=== PATIENT | male | born 1930 | race Hispanic/Latino ===

== ENCOUNTER 2018-11-11 14:14 | Inpatient (IN) | payer MEDICARE ==
[2018-11-11 14:33] VITALS: O2SAT 96
--- NOTE | 2018-11-11 14:36 | ED PDOC ---
Psych Transfer Clearance - Clearance Statement Clearance Statement: Reviewed vital signs, lab results and transfer papers. Patient clinically stable for psychiatric admission.
[2018-11-11] MEDS ORDERED: Magnesium Hydroxide Susp 30 ml UD PO PRN (15:21)
[2018-11-11] MEDS ORDERED: Alum-Mag Hydrox-Simethicone Susp (30 mL) PO PRN (15:21)
--- NOTE | 2018-11-11 16:05 | PCM.BM ---
<Gretchen García Santi - Last Filed: 11/11/18 16:03> Treatment Plan Problems - Problems identified on initial assessmt Aggressive Behavior Date Initiated: 11/11/18 Time Initiated: 16:03 Assessment reference: HP, NA Status: Active Priority: 1 Treatment assets and liabiliti Patient Assests: cooperative, negotiates basic needs Patient Liabilities: dietary restrictions, medical problems, imparied memory - Milieu Protocol Maintain good personal hygiene: daily Encourage regular showers, daily Remind patient to perform daily oral care, daily Assist patient to perform ADL's Conduct patient checks and document Observation sheet: Q15 minutes Maintain personal safety: every shift Educate patient to report safety concerns to staff, every shift Monitor environment for contraband/sharps Medication safety: Monitor for expected outcome, potential side effects: every shift, Assess barriers to learning: every shift, Assess readiness for medication education: every shift <Kathie Miranda - Last Filed: 11/12/18 10:24> - Diagnosis (1) Dementia with behavioral disturbance Status: Acute Interventions: Medication management, Individual and group therapy, Psychoeducation 11/12/18 10:24 <Lala Lovelace M - Last Filed: 11/14/18 15:50> Family Contact Family involvement: Family/SO is involved Family contact: Patient agrees to contact, Family has been contacted by patient, Telephone contact initiated by staff Family contact name: Adore Chavez- Spouse and JEANNINE Family contacted how many times per week?: 2 - Outside Agency [facility] involvment: Information-sharing Agency contact number: Discharge/Continuing Care - Education Needs Education Needs: Family Medication, Family Diagnosis/Disease Process, Family Coping Skills, Family Placement options, Family Community resources, Family Activities of Daily Living, Family Nutrition, Family Uses of Medical Equipment, Family Health Practices/Safety, Family Personal Hygiene/Grooming, Family Aftercare Safety Plan - Discharge Discharge Criteria: Tolerates medication w/o severe side effects, Free of agitation, Normal sleep pattern, Ability to care for self, Reduction of target symptoms Discharge to:: Group Home Facility - Additional Comments 11/14/18 15:44 Pt discussed in team meeting. Pt observed to be asleep and not aroused at the ti nc. Reason for admission reviewed and discussed. Pt admitted due to aggressive and combative bx's at [facility]. Pt's spouse is POA. Pt's medications reviewed and discussed. Pt's medical and social issues reviewed and discussed. tx plan reviewed and discussed. SW to continue to follow case. SW to contact spouse for collateral information. - Treatment Team Participation Discussed with Family/SO: No Was Patient/Family/SO present at Treatment Team Meeting: Yes
[2018-11-11] MEDS: Divalproex 125 mg Sprinkle Capsule PO SCH (17:29)
[2018-11-12 07:47] LABS: HEMOGLOBIN 14.7 g/dL (12.0-18.0); MEAN CELL VOLUME 97.6 fl (80.0-94.0); MEAN CORPUSCULAR HEMOGLOBIN 32.6 pg (27.0-31.0); MEAN CORPUSCULAR HGB CONC 33.4 g/dL (33.0-37.0); RBC 4.52 Mil/uL (4.40-5.90); RED CELL DISTRIBUTION WIDTH 13.4 % (11.5-14.5); WHITE BLOOD COUNT 5.9 K/uL (4.8-10.8)
[2018-11-12 07:58] LABS: ALB/GLOB RATIO 1.3 (1.0-2.1); ALBUMIN 4.5 g/dL (3.5-5.0); ALT/SGPT 29 U/L (21-72); AST/SGOT 33 U/L (17-59); BLOOD UREA NITROGEN 20 mg/dl (9-20); CALCIUM 9.8 mg/dL (8.4-10.2); GFR NON-AFRICAN AMERICAN > 60; HDL CHOLESTEROL 42 MG/DL (30-70)
[2018-11-12 08:10] LABS: LDL CHOLESTEROL 63 mg/dL (0-129)
[2018-11-12] MEDS: Divalproex 125 mg Sprinkle Capsule PO SCH ×2 (09:06→17:39)
--- NOTE | 2018-11-12 10:29 | PCM.PSYCH ---
Initial Psychiatric Evaluation - Initial Psychiatric Evaluation Type of Admission: Voluntary Legal Status: DPOA Chief Complaint (in patient's own words): Behavioral disturbances Patient's Reaction to Hospitalization: HPI: 88 yo male w/ h/o dementia, present w/ worsening behavioral disturbances, mood lability, physical aggression towards staff, punching/kicking/screaming, threw a chair at fellow residents, stated he wanted a rifle to shoot everyone and attempting to wander and elope. No acute psychotic symptoms reported. PPHx: H/o inpatient psychiatric treatment at [facility]; current medications- Depakote, Seroquel, Aricept PMHx: HTN, DM, CAD, HLD, gout ALL: NDKA SHx: Resident at long term; no current drug/etoh use Current Medications: Active Medications Generic Name Dose Route Start Last Admin Trade Name Freq PRN Reason Stop Dose Admin Acetaminophen 650 mg 11/11/18 15:21 11/11/18 22:26 Tylenol 325mg Tab PO 650 mg Q4 PRN Administration Pain, moderate (4-7) Al Hydrox/Mg Hydrox/Simethicone 30 ml 11/11/18 15:21 Maalox Plus 30 Ml PO Q4 PRN Dyspepsia Bismuth Subsalicylate 524 mg 11/11/18 15:21 Pepto-Bismol PO Q4 PRN Diarrhea Divalproex Sodium 250 mg 11/11/18 17:00 11/12/18 09:06 Depakote Sprinkles PO 250 mg BID ROJELIO Administration Donepezil HCl 10 mg 11/11/18 22:00 11/11/18 21:33 Aricept PO 10 mg HS ROJELIO Administration Gabapentin 400 mg 11/12/18 22:00 Neurontin PO HS [facility] Home Med 20 mg 11/12/18 10:30 Rosuvastatin Calcium [Crestor] PO DAILY ROJELIO Lorazepam 0.5 mg 11/11/18 15:21 11/11/18 22:23 Ativan PO 11/25/18 15:22 0.5 mg Q6 PRN Administration Anixety/Agitation Losartan Potassium 25 mg 11/12/18 10:30 Cozaar PO DAILY ROJELIO Magnesium Hydroxide 30 ml 11/11/18 15:21 Milk Of Magnesia PO HS PRN Constipation Metformin HCl 1,000 mg 11/12/18 10:30 Glucophage PO BIDWM [facility] Mhlft-2-Pssy Ethyl Esters 1 gm 11/12/18 10:30 Lovaza PO DAILY [facility] Quetiapine Fumarate 100 mg 11/11/18 22:00 11/11/18 21:34 Seroquel PO 100 mg HS [facility] Administration Sitagliptin Phosphate 100 mg 11/12/18 10:30 Januvia PO DAILY [facility] Past Psychiatric History - Past Psychiatric History Previous Treatment History: Inpatient Pertinent Medical Hx (Current Medical&Sleep Prob, Allergies): Allergies Allergy/AdvReac Type Severity Reaction Status Date / Time No Known Allergies Allergy Verified 11/11/18 14:27 Calcium Carbonate 1,250 mg DAILY 11/11/18 Cholecalciferol (Vitamin D3) [Vitamin D3] 2,000 units PO DAILY 11/11/18 Cyanocobalamin [Vitamin B12 100 mcg Tab] 100 mcg PO DAILY 11/11/18 Divalproex [Depakote Sprinkles] 125 mg PO BID 11/11/18 Donepezil [Aricept] 10 mg PO HS 11/11/18 Gabapentin [Neurontin] 400 mg PO HS 11/11/18 Losartan [Cozaar] 25 mg PO DAILY 11/11/18 Metformin HCl [Glucophage] 1,000 mg PO BID 11/11/18 Cdxcn-1-Ssar Ethyl Esters 1 GM [Lovaza] 1 gm PO DAILY 11/11/18 QUEtiapine [SEROquel] 25 mg PO DAILY 11/11/18 QUEtiapine [SEROquel] 100 mg PO HS 11/11/18 Rosuvastatin Calcium [Crestor] 20 mg PO DAILY 11/11/18 SITagliptin [Januvia] 100 mg PO DAILY 11/11/18 Review of Systems - Psychiatric Psychiatric: As Per HPI, Abnormal Sleep Pattern, Difficulty Concentrating, Irritability, Memory Loss, Mood Swings, Other (Agitation/aggression) Mental Status Examination - Personal Presentation Personal Presentation: Looks stated age - Affect Affect: Constricted - Motor Activity Motor Activity: Calm - Reliability in Providing Information Reliability in Providing Information: Poor, due to cognitve impairment - Speech Speech: Coherent - Mood Mood: Neutral - Formal Thought Process Formal Thought Process: Loosening of associations - Obsessions/Compulsions Obsessions: No Compulsions: No - Cognitive Functions Orientation: Person, Place ("[facility]"), Time ("November 2018") Judgement: Imparied, as evidence by: Poor judgement, Imparied, as evidence by: Lack of insight into illness Memory: Recent impaired, as evidence by: Inability to recall events of the day, Recent imparied as evidence by:Inability to complete 3/3 object recall - Risk Risk: Diminished functioning - Strength & Assets Inventory Strength & Assets Inventory: Family support - Limitations Limitations: Decreased memory, recent DSM 5 DX - DSM 5 DSM 5 Diagnosis: Dementia with behavioral disturbances - Recommended/Plan of Treatment Treatment Recommendations and Plan of Treatment: Dementia with behavioral disturbances -Admit to psychiatry unit -Increase Depakote; VPA 37.8 on 11/12/18 -Continue Seroquel and Aricept -Medicine consult -Obtain collateral history -Disposition planning Projected ELOS: 7-10 days Discharge Plan and Discharge Criteria: Discharge when patient is psychiatrically stable - Smoking Cessation Smoking Cessation Initiated: No Reason for not providing: Not indicated
[2018-11-12] MEDS: Omega-3-Acid Ethyl Esters 1 GM Cap PO SCH (11:24)
--- NOTE | 2018-11-12 11:59 | CP.PCM.CON ---
History of Present Illness - History of Present Illness History of Present Illness: 88 yo male with history of DM2, CAD, HTN, HLD and Gout admitted to [facility] because of aggressive and violent behaviour. Review of Systems - Review of Systems All systems: reviewed and no additional remarkable complaints except (aside from those mentioned above, 12 point system review were negative by me) Past Patient History - Infectious Disease Hx of Infectious Diseases: None - Tetanus Immunizations Tetanus Immunization: Unknown - Past Social History Smoking Status: Unknown If Ever Smoked Chewing Tobacco Use: No Cigar Use: No Alcohol: None - MUSCULOSKELETAL/RHEUMATOLOGICAL Hx Falls: No - PSYCHIATRIC Hx Substance Use: No Meds Allergies/Adverse Reactions: Allergies Allergy/AdvReac Type Severity Reaction Status Date / Time No Known Allergies Allergy Verified 11/11/18 14:27 - Medications Medications: Current Medications Acetaminophen (Tylenol 325mg Tab) 650 mg PO Q4 PRN PRN Reason: Pain, moderate (4-7) Last Admin: 11/11/18 22:26 Dose: 650 mg Al Hydrox/Mg Hydrox/Simethicone (Maalox Plus 30 Ml) 30 ml PO Q4 PRN PRN Reason: Dyspepsia Atorvastatin Calcium (Lipitor) [address] [facility] Last Admin: 11/12/18 11:25 Dose: 40 mg Bismuth Subsalicylate (Pepto-Bismol) 524 mg PO Q4 PRN PRN Reason: Diarrhea Divalproex Sodium (Depakote Sprinkles) [address] [facility] Last Admin: 11/12/18 09:06 Dose: 250 mg Donepezil HCl (Aricept) [address] [facility] Last Admin: 11/11/18 21:33 Dose: 10 mg Gabapentin (Neurontin) [address] [facility] Lorazepam (Ativan) 0.5 mg PO Q6 PRN PRN Reason: Anixety/Agitation Stop: 11/25/18 15:22 Last Admin: 11/11/18 22:23 Dose: 0.5 mg Losartan Potassium (Cozaar) [address] [facility] Last Admin: 11/12/18 11:25 Dose: 25 mg Magnesium Hydroxide (Milk Of Magnesia) 30 ml PO HS PRN PRN Reason: Constipation Metformin [facility] (Glucophage) [facility] Last Admin: 11/12/18 11:25 Dose: 1,000 mg Cgpjg-2-Lvzv Ethyl Esters (Lovaza) [address] [facility] Last Admin: 11/12/18 11:24 Dose: 1 gm Quetiapine Fumarate (Seroquel) [address] [facility] Last Admin: 11/11/18 21:34 Dose: 100 mg Sitagliptin Phosphate (Januvia) [address] [facility] Last Admin: 11/12/18 11:24 Dose: 100 mg Physical Exam - Constitutional Appears: No Acute Distress - Head Exam Head Exam: ATRAUMATIC - Eye Exam Eye Exam: absent: Scleral icterus - ENT Exam ENT Exam: Mucous Membranes Moist - Neck Exam Neck exam: Negative for: Meningismus - Respiratory Exam Respiratory Exam: absent: Rales, Rhonchi, Wheezes, Respiratory Distress - Cardiovascular Exam Cardiovascular Exam: REGULAR RHYTHM, +S1, +S2 - GI/Abdominal Exam GI & Abdominal Exam: Soft. absent: Tenderness - Rectal Exam Rectal Exam: Deferred - Neurological Exam Neurological exam: Alert, Oriented x3 - Psychiatric Exam Psychiatric exam: Normal Affect - Skin Skin Exam: Dry, Intact Results - Vital Signs Recent Vital Signs: Last Vital Signs Temp 97.2 F L 11/12/18 10:00 Pulse 62 11/12/18 11:25 Resp 18 11/12/18 10:00 BP 150/83 11/12/18 11:25 Pulse Ox 96 11/11/18 14:18 - Labs Result Diagrams: 11/12/18 06:00 11/12/18 06:00 Labs: Laboratory Results - last 24 hr 11/12/18 11/12/18 11/12/18 06:00 06:00 06:00 WBC 5.9 RBC 4.52 Hgb 14.7 Hct 44.1 MCV 97.6 H MCH 32.6 H MCHC 33.4 RDW 13.4 Plt Count 218 Sodium 138 Potassium 4.2 Chloride 97 L Carbon Dioxide 29 Anion Gap 16 BUN 20 Creatinine 1.1 Est GFR ( Amer) > 60 Est GFR (Non-Af Amer) > 60 Random Glucose 135 H Calcium 9.8 Total Bilirubin 0.7 AST 33 ALT 29 Alkaline Phosphatase 76 Total Protein 8.0 Albumin 4.5 Globulin 3.5 Albumin/Globulin Ratio 1.3 Triglycerides 166 H Cholesterol 134 LDL Cholesterol Direct 63 HDL Cholesterol 42 Vitamin B12 608 Thyroxine (T4) 6.61 TSH 3rd Generation 3.43 Valproic Acid 37.8 L Assessment & Plan (1) Dementia with behavioral disturbance Status: Acute Comment: psyche is managing (2) DM2 (diabetes mellitus, type 2) Status: Chronic Comment: BS controlled. on Metformin and Januvia. accuchek ACHS (3) HTN (hypertension) Status: Chronic Comment: BP stable. continue Losartan (4) CAD (coronary artery disease) Status: Chronic Comment: stable
[2018-11-12 13:05] LABS: FOLATE > 20.0 ng/mL
[2018-11-13 08:12] LABS: URINE BILIRUBIN NEGATIVE (NEGATIVE); URINE BLOOD NEGATIVE (NEGATIVE); URINE CLARITY CLEAR (Clear); URINE COLOR YELLOW (YELLOW); URINE GLUCOSE (UA) NEG (NEGATIVE); URINE LEUKOCYTE ESTERASE NEG Leu/uL (Negative); URINE PROTEIN NEGATIVE (NEGATIVE); URINE UROBILINOGEN 0.2-1.0 mg/dL (0.2-1.0)
[2018-11-13] MEDS: Divalproex 125 mg Sprinkle Capsule PO SCH ×2 (09:09→17:05)
[2018-11-13] MEDS: Omega-3-Acid Ethyl Esters 1 GM Cap PO SCH (09:10)
--- NOTE | 2018-11-13 11:41 | PCM.PYCHPN ---
Psychiatric Progress Note - Psychiatric Progress Note Patient seen today, length of contact: Pt evaluated, case discussed w/ team, chart reviewed Patient Chief Complaint: Behavioral disturbances Problems Identified/Issues Discussed: Patient had some mood lability yesterday evening, but has been in good behavioral control. No violence, aggression or threatening behavior. He continues to have chronic deficits in memory and limited insight/judgment due to dementia. Medication Change: No Medical Record Reviewed: Yes Consults ordered or reviewed: Medicine consult Mental Status Examination - Cognitive Function Orientation: Person, Place ("Hospital"), Time ("November 2018") Memory: Impaired Decription of patient's judgement and insights: Limited I/J due to dementia - Mood Mood: Neutral - Affect Affect: Constricted - Formal Thought Process Formal Thought Process: Loosening of associations Psychotic Thoughts and Behaviors: No AH/VH/paranoia/delusions - Suicidal Ideation Suicidal Ideation: No - Homicidal Ideation Homicidal Ideation: No Goal/Treatment Plan - Goal/Treatment Plan Need for Continued Stay: Severe functional impairment Progress Toward Problem(s) and Goals/Treatment Plan: Dementia with behavioral disturbances -Continue Depakote; VPA 37.8 on 11/12/18 -Continue Seroquel and Aricept -Medicine consult -Obtain collateral history -Disposition planning
[2018-11-14] MEDS: Divalproex 125 mg Sprinkle Capsule PO SCH ×2 (08:18→17:06)
[2018-11-14] MEDS: Omega-3-Acid Ethyl Esters 1 GM Cap PO SCH (08:19)
--- NOTE | 2018-11-14 11:01 | PCM.PYCHPN ---
Psychiatric Progress Note - Psychiatric Progress Note Patient seen today, length of contact: Pt evaluated, case discussed w/ team, chart reviewed Patient Chief Complaint: Behavioral disturbances Problems Identified/Issues Discussed: Patient continues to have poor sleep with mood lability. He has not had any physical or verbal aggression. He continues to have chronic deficits in memory and limited insight/judgment due to dementia. Medication Change: No Medical Record Reviewed: Yes Consults ordered or reviewed: Medicine consult Mental Status Examination - Cognitive Function Orientation: Person, Place ("Hospital"), Time ("November 2018") Memory: Impaired Decription of patient's judgement and insights: Limited I/J due to dementia - Mood Mood: Neutral - Affect Affect: Constricted - Formal Thought Process Formal Thought Process: Loosening of associations Psychotic Thoughts and Behaviors: No AH/VH/paranoia/delusions - Suicidal Ideation Suicidal Ideation: No - Homicidal Ideation Homicidal Ideation: No Goal/Treatment Plan - Goal/Treatment Plan Need for Continued Stay: Severe functional impairment Progress Toward Problem(s) and Goals/Treatment Plan: Dementia with behavioral disturbances -Continue Depakote; VPA 37.8 on 11/12/18 -Continue Seroquel and Aricept -Medicine consult -Obtain collateral history -Disposition planning
--- NOTE | 2018-11-15 09:39 | PCM.PYCHPN ---
Psychiatric Progress Note - Psychiatric Progress Note Patient seen today, length of contact: Pt evaluated, case discussed w/ team, chart reviewed Patient Chief Complaint: Behavioral disturbances Problems Identified/Issues Discussed: Patient continues to have periods of irritability and mood lability, but has not had any physical or verbal aggression. He continues to have chronic deficits in memory and limited insight/judgment due to dementia. SW to discuss disposition planning with the patient's and POA. Medication Change: No Medical Record Reviewed: Yes Consults ordered or reviewed: Medicine consult Mental Status Examination - Cognitive Function Orientation: Person, Place ("Hospital"), Time ("November 2018") Memory: Impaired Decription of patient's judgement and insights: Limited I/J due to dementia - Mood Mood: Neutral - Affect Affect: Constricted - Formal Thought Process Formal Thought Process: Loosening of associations Psychotic Thoughts and Behaviors: No AH/VH/paranoia/delusions - Suicidal Ideation Suicidal Ideation: No - Homicidal Ideation Homicidal Ideation: No Goal/Treatment Plan - Goal/Treatment Plan Need for Continued Stay: Severe functional impairment Progress Toward Problem(s) and Goals/Treatment Plan: Dementia with behavioral disturbances -Continue Depakote; VPA 37.8 on 11/12/18 -Continue Seroquel and Aricept -Medicine consult -Case discussed w/ , POA -Disposition planning
[2018-11-15] MEDS: Divalproex 125 mg Sprinkle Capsule PO SCH ×2 (10:23→16:25)
[2018-11-15] MEDS: Omega-3-Acid Ethyl Esters 1 GM Cap PO SCH (10:24)
--- NOTE | 2018-11-16 08:13 | PCM.PYCHPN ---
Psychiatric Progress Note - Psychiatric Progress Note Patient seen today, length of contact: Pt evaluated, case discussed w/ team, chart reviewed Patient Chief Complaint: Behavioral disturbances, now improving Problems Identified/Issues Discussed: Patient has late day confusion in the evening and was wandering around the unit trying to leave. He continues to have periods of mood lability, but has not had any verbal or physical aggression. He continues to have chronic deficits in memory and limited insight/judgment due to dementia. Patient will need [facility] placement as the patient is not able to care for himself at this time. Medication Change: Yes (Increase Seroquel) Medical Record Reviewed: Yes Consults ordered or reviewed: Medicine consult Mental Status Examination - Cognitive Function Orientation: Person, Place ("Hospital"), Time ("November 2018") Memory: Impaired Decription of patient's judgement and insights: Limited I/J due to dementia - Mood Mood: Neutral - Affect Affect: Constricted - Formal Thought Process Formal Thought Process: Loosening of associations Psychotic Thoughts and Behaviors: No AH/VH/paranoia/delusions - Suicidal Ideation Suicidal Ideation: No - Homicidal Ideation Homicidal Ideation: No Goal/Treatment Plan - Goal/Treatment Plan Need for Continued Stay: Severe functional impairment Progress Toward Problem(s) and Goals/Treatment Plan: Dementia with behavioral disturbances -Continue Depakote; VPA 37.8 on 11/12/18; will recheck VPA on 11/18/18 -Increase Seroquel -Continue Aricept -Medicine consult -Case discussed w/ , POA -Disposition planning
[2018-11-16] MEDS: Divalproex 125 mg Sprinkle Capsule PO SCH ×2 (08:17→16:16)
[2018-11-16] MEDS: Omega-3-Acid Ethyl Esters 1 GM Cap PO SCH (08:18)
[2018-11-16] MEDS: Bismuth Subsalicylate 262 mg/15 ml Sus (240 ml) PO PRN (11:43)
--- NOTE | 2018-11-17 08:18 | PCM.PYCHPN ---
Psychiatric Progress Note - Psychiatric Progress Note Patient seen today, length of contact: Pt evaluated, case discussed w/ team, chart reviewed Patient Chief Complaint: Behavioral disturbances, now improving Problems Identified/Issues Discussed: Patient is improving clinically. He is approaching his baseline of functioning. He needs redirection from staff at times, but has not had any behavioral disturbances, violence or aggression. He continues to have chronic deficits in memory and limited insight/judgment due to dementia. Patient will need long-term placement as the patient is not able to care for himself at this time. Medication Change: No Medical Record Reviewed: Yes Consults ordered or reviewed: Medicine consult Mental Status Examination - Cognitive Function Orientation: Person, Place ("Hospital"), Time ("November 2018") Memory: Impaired Decription of patient's judgement and insights: Limited I/J due to dementia - Mood Mood: Neutral - Affect Affect: Constricted - Formal Thought Process Formal Thought Process: Loosening of associations Psychotic Thoughts and Behaviors: No AH/VH/paranoia/delusions - Suicidal Ideation Suicidal Ideation: No - Homicidal Ideation Homicidal Ideation: No Goal/Treatment Plan - Goal/Treatment Plan Need for Continued Stay: Severe functional impairment Progress Toward Problem(s) and Goals/Treatment Plan: Dementia with behavioral disturbances -Continue Depakote; VPA 37.8 on 11/12/18; will recheck VPA on 11/18/18 -Continue Seroquel -Continue Aricept -Medicine consult -Case discussed w/ , POA -Disposition planning
[2018-11-17] MEDS: Divalproex 125 mg Sprinkle Capsule PO SCH ×2 (09:20→17:53)
[2018-11-17] MEDS: Omega-3-Acid Ethyl Esters 1 GM Cap PO SCH (09:22)
[2018-11-18 06:39] LABS: BASO # 0.1 K/uL (0.0-0.2); BASO % 1.1 % (0.0-2.0); EOS # 0.2 K/uL (0.0-0.7); EOS % 4.7 % (0.0-4.0); HEMOGLOBIN 13.5 g/dL (12.0-18.0); LYMPH # 1.8 K/uL (1.0-4.3); LYMPH % 33.7 % (20.0-40.0); MEAN CELL VOLUME 96.8 fl (80.0-94.0); MEAN CORPUSCULAR HEMOGLOBIN 32.6 pg (27.0-31.0); MEAN CORPUSCULAR HGB CONC 33.7 g/dL (33.0-37.0); MEAN PLATELET VOLUME 7.9 fl (7.2-11.7); MONO # 0.6 K/uL (0.0-0.8); MONO % 11.4 % (0.0-10.0); NEUT # 2.6 K/uL (1.8-7.0); NEUT % 49.1 % (50.0-75.0); NRBC % 0.1 % (0.0-0.0); RBC 4.13 Mil/uL (4.40-5.90); RED CELL DISTRIBUTION WIDTH 13.5 % (11.5-14.5); WHITE BLOOD COUNT 5.3 K/uL (4.8-10.8)
[2018-11-18 07:25] LABS: ALB/GLOB RATIO 1.3 (1.0-2.1); ALBUMIN 4.1 g/dL (3.5-5.0); ALT/SGPT 26 U/L (21-72); AST/SGOT 21 U/L (17-59); BLOOD UREA NITROGEN 23 mg/dl (9-20); CALCIUM 9.4 mg/dL (8.4-10.2); GFR NON-AFRICAN AMERICAN > 60
--- NOTE | 2018-11-18 08:23 | PCM.PYCHPN ---
Psychiatric Progress Note - Psychiatric Progress Note Patient seen today, length of contact: Pt evaluated, case discussed w/ team, chart reviewed Patient Chief Complaint: Inability to care for self Problems Identified/Issues Discussed: Patient has improved clinically. No acute behavioral disturbance or agitation. Patient is at his baseline of functioning. He continues to have chronic deficits in memory and limited insight/judgment due to dementia. Patient will need [facility]iary [facility] as the patient is not able to care for himself at this time. Diagnostic Results: VPA 65.7 on 11/18/18 Medication Change: No Medical Record Reviewed: Yes Consults ordered or reviewed: Medicine consult Mental Status Examination - Cognitive Function Orientation: Person, Place ("[facility]"), Time ("November 2018") Memory: Impaired Decription of patient's judgement and insights: Limited I/J due to dementia - Mood Mood: Neutral - Affect Affect: Constricted - Formal Thought Process Formal Thought Process: Loosening of associations Psychotic Thoughts and Behaviors: No AH/VH/paranoia/delusions - Suicidal Ideation Suicidal Ideation: No - Homicidal Ideation Homicidal Ideation: No Goal/Treatment Plan - Goal/Treatment Plan Need for Continued Stay: Severe functional impairment Progress Toward Problem(s) and Goals/Treatment Plan: Dementia with behavioral disturbances; now improved; patient is psychiatrically stable for referral to [facility] rec[facility] placement. -Continue Depakote; VPA 65.7 on 11/18/18 -Continue Seroquel -Continue Aricept -Medicine consult -Case discussed w/ , POA -Disposition planning
[2018-11-18] MEDS: Omega-3-Acid Ethyl Esters 1 GM Cap PO SCH (09:46)
[2018-11-18] MEDS: Divalproex 125 mg Sprinkle Capsule PO SCH ×2 (09:48→17:26)
[2018-11-18 12:44] VITALS: BMI 22.5
[2018-11-19] MEDS: Divalproex 125 mg Sprinkle Capsule PO SCH ×2 (08:16→16:19)
[2018-11-19] MEDS: Omega-3-Acid Ethyl Esters 1 GM Cap PO SCH (08:19)
--- NOTE | 2018-11-19 11:37 | PCM.PYCHPN ---
Psychiatric Progress Note - Psychiatric Progress Note Patient seen today, length of contact: Pt evaluated, case discussed w/ team, chart reviewed Patient Chief Complaint: pt has remained confused but is less agitated but remains with poor insight and need stabilization. Medication Change: No Medical Record Reviewed: Yes Mental Status Examination - Cognitive Function Orientation: Person, Place ("Hospital"), Time ("November 2018") Memory: Impaired - Mood Mood: Neutral - Affect Affect: Constricted - Formal Thought Process Formal Thought Process: Loosening of associations - Suicidal Ideation Suicidal Ideation: No - Homicidal Ideation Homicidal Ideation: No Goal/Treatment Plan - Goal/Treatment Plan Need for Continued Stay: Severe functional impairment Progress Toward Problem(s) and Goals/Treatment Plan: continue the current meds . pt is waiting for group home placement.
[2018-11-20] MEDS: Divalproex 125 mg Sprinkle Capsule PO SCH ×2 (08:15→17:11)
[2018-11-20] MEDS: Omega-3-Acid Ethyl Esters 1 GM Cap PO SCH (08:18)
--- NOTE | 2018-11-20 14:28 | PCM.PYCHPN ---
Psychiatric Progress Note - Psychiatric Progress Note Patient seen today, length of contact: Pt evaluated, case discussed w/ team, chart reviewed Patient Chief Complaint: pt has remained very anxious and making banging noises and still confused but is less agitated but remains with poor insight and need stabilization. Medication Change: No Medical Record Reviewed: Yes Mental Status Examination - Cognitive Function Orientation: Person, Place ("Hospital"), Time ("November 2018") Memory: Impaired - Mood Mood: Neutral - Affect Affect: Constricted - Formal Thought Process Formal Thought Process: Loosening of associations - Suicidal Ideation Suicidal Ideation: No - Homicidal Ideation Homicidal Ideation: No Goal/Treatment Plan - Goal/Treatment Plan Need for Continued Stay: Severe functional impairment Progress Toward Problem(s) and Goals/Treatment Plan: continue the current meds . pt is waiting for [facility] placement.
[2018-11-21] MEDS: Omega-3-Acid Ethyl Esters 1 GM Cap PO SCH (08:43)
[2018-11-21] MEDS: Divalproex 125 mg Sprinkle Capsule PO SCH ×2 (08:44→21:23)
--- NOTE | 2018-11-21 15:46 | PCM.PYCHPN ---
Psychiatric Progress Note - Psychiatric Progress Note Patient seen today, length of contact: Pt evaluated, case discussed w/ team, chart reviewed Patient Chief Complaint: seen seated in chair, at times yelling out, staff report pt requires frequent redirection, pti confused requires total care, pt remains on fall precautions-pt is pending ltc placement Problems Identified/Issues Discussed: alteration in cognition alteration in self care Medical Problems: per chart pt being followed by hospitalist Diagnostic Results: per psychiatry per medicine per nursing per social work per recreational therapist DSM 5 Symptoms Update: appears to be approaching baseline Medication Change: No Medical Record Reviewed: Yes Consults ordered or reviewed: pt being followed by [facility] Mental Status Examination - Cognitive Function Orientation: Person, Place ("[facility]"), Time ("November 2018") Memory: Impaired Attention: Poor Concentration: Poor Association: Loose Decription of patient's judgement and insights: impaired - Mood Mood: Neutral - Affect Affect: Constricted - Formal Thought Process Formal Thought Process: Loosening of associations - Suicidal Ideation Suicidal Ideation: No - Homicidal Ideation Homicidal Ideation: No Goal/Treatment Plan - Goal/Treatment Plan Need for Continued Stay: Severe functional impairment Progress Toward Problem(s) and Goals/Treatment Plan: inpt milieu adjust meds per status vital signs clinical assessment per protocol and per clinical status discharge planning in progress pending ltc placement requires total care Estimated Date of D/C: 11/25/18 - Smoking Cessation Smoking Cessation Initiated: No Reason for not providing: defers
[2018-11-22] MEDS: Divalproex 125 mg Sprinkle Capsule PO SCH ×2 (10:40→16:12)
[2018-11-22] MEDS: Omega-3-Acid Ethyl Esters 1 GM Cap PO SCH (10:42)
--- NOTE | 2018-11-22 16:42 | PCM.PYCHPN ---
Psychiatric Progress Note - Psychiatric Progress Note Patient seen today, length of contact: Pt evaluated, case discussed w/ team, chart reviewed Patient Chief Complaint: pt seen seated near nurse's station appears reading newspaper per staff pt appears calmer as compared to yesterday. requires total care. has been adherent with medication. Problems Identified/Issues Discussed: alteration in cognition alteration in self care Medical Problems: per chart pt being followed by hospitalist Diagnostic Results: per psychiatry per medicine per nursing per social work per recreational therapist DSM 5 Symptoms Update: alteration in cognition/mood/self care Medication Change: No Medical Record Reviewed: Yes Consults ordered or reviewed: pt seen by medical team Mental Status Examination - Cognitive Function Orientation: Person, Place ("Hospital"), Time ("November 2018") Memory: Impaired Attention: Poor Concentration: Poor Association: Loose Decription of patient's judgement and insights: impaired - Mood Mood: Neutral - Affect Affect: Constricted - Formal Thought Process Formal Thought Process: Loosening of associations - Suicidal Ideation Suicidal Ideation: No - Homicidal Ideation Homicidal Ideation: No Goal/Treatment Plan - Goal/Treatment Plan Need for Continued Stay: Severe functional impairment Progress Toward Problem(s) and Goals/Treatment Plan: inpt milieu adjust meds per status vital signs clinical assessment per protocol and per clinical status discharge planning in progress pending ltc placement requires total care Estimated Date of D/C: 11/25/18 - Smoking Cessation Smoking Cessation Initiated: No Reason for not providing: pt defers
[2018-11-23] MEDS: Divalproex 125 mg Sprinkle Capsule PO SCH ×2 (10:17→16:32)
[2018-11-23] MEDS: Omega-3-Acid Ethyl Esters 1 GM Cap PO SCH (10:20)
--- NOTE | 2018-11-23 16:39 | PCM.PYCHPN ---
Psychiatric Progress Note - Psychiatric Progress Note Patient seen today, length of contact: Pt evaluated, case discussed w/ team, chart reviewed Patient Chief Complaint: pt seen common area, seated in martha chair, appears to be writing lets. reports "doing Just fine". staff report pt is some what irritable but not aggressive. rx adherent. requires total care. is seen to ambulate slow steady gait. treatment member in contact with pt's family related to status, possible placement. Problems Identified/Issues Discussed: alteration in cognition alteration in self care Medical Problems: per chart pt being followed by hospitalist Diagnostic Results: per psychiatry per medicine per nursing per social work per recreational therapist DSM 5 Symptoms Update: appears to be reaching baseline Medication Change: No Medical Record Reviewed: Yes Consults ordered or reviewed: pt seen by hospitalist Mental Status Examination - Cognitive Function Orientation: Person, Place ("Hospital"), Time ("November 2018") Memory: Impaired Attention: Poor Concentration: Poor Association: Loose Decription of patient's judgement and insights: impaired - Mood Mood: Neutral - Affect Affect: Constricted - Formal Thought Process Formal Thought Process: Loosening of associations - Suicidal Ideation Suicidal Ideation: No - Homicidal Ideation Homicidal Ideation: No Goal/Treatment Plan - Goal/Treatment Plan Need for Continued Stay: Severe functional impairment Progress Toward Problem(s) and Goals/Treatment Plan: inpt milieu adjust meds per status team facilitator in contact with family member vital signs clinical assessment per protocol and per clinical status discharge planning in progress pending ltc placement requires total care Estimated Date of D/C: 11/25/18 - Smoking Cessation Smoking Cessation Initiated: No Reason for not providing: pt defers
--- NOTE | 2018-11-24 09:29 | PCM.BM ---
Treatment Plan Problems - Problems identified on initial assessmt Aggressive Behavior Date Initiated: 11/11/18 Time Initiated: 16:03 Assessment reference: HP, NA Status: Active Priority: 1 Treatment assets and liabiliti Patient Assests: cooperative, negotiates basic needs Patient Liabilities: dietary restrictions, medical problems, imparied memory - Milieu Protocol Maintain good personal hygiene: daily Encourage regular showers, daily Remind patient to perform daily oral care, daily Assist patient to perform ADL's Conduct patient checks and document Observation sheet: Q15 minutes Maintain personal safety: every shift Educate patient to report safety concerns to staff, every shift Monitor environment for contraband/sharps Medication safety: Monitor for expected outcome, potential side effects: every shift, Assess barriers to learning: every shift, Assess readiness for medication education: every shift Milieu Narrative: inpt milieu adjust meds per status head orthopedic team physician in contact with family member vital signs clinical assessment per protocol and per clinical status discharge planning in progress pending ltc placement requires total care Family Contact Family involvement: Family/SO is involved Family contact: Patient agrees to contact, Family has been contacted by patient, Telephone contact initiated by staff Family contact name: Adore Chavez- Spouse and JEANNINE Family contacted how many times per week?: 2 - Outside Agency [facility] Care involvment: Information-sharing Agency contact number: Discharge/Continuing Care - Education Needs Education Needs: Family Medication, Family Diagnosis/Disease Process, Family Coping Skills, Family Placement options, Family Community resources, Family Activities of Daily Living, Family Nutrition, Family Uses of Medical Equipment, Family Health Practices/Safety, Family Personal Hygiene/Grooming, Family Aftercare Safety Plan - Discharge Discharge Criteria: Tolerates medication w/o severe side effects, Free of agitation, Normal sleep pattern, Ability to care for self, Reduction of target symptoms Discharge to:: Snf Facility - Additional Comments 11/14/18 15:44 Pt discussed in team meeting. Pt observed to be asleep and not aroused at the time. Reason for admission reviewed and discussed. Pt admitted due to aggressive and combative bx's at [facility]. Pt's spouse is JEANNINE. Pt's medications reviewed and discussed. Pt's medical and social issues reviewed and discussed. tx plan reviewed and discussed. SW to continue to follow case. SW to contact spouse for collateral information. - Treatment Team Participation Patient/Family/SO Statement: inpt milieu adjust meds per status head orthopedic team physician in contact with family member vital signs clinical assessment per protocol and per clinical status discharge planning in progress pending ltc placement requires total care Discussed with Family/SO: No Was Patient/Family/SO present at Treatment Team Meeting: Yes Treatment Plan Review Patient participation: No (Pt observed to be asleep, not easily aroused. ) Family/SO/Caregiver participation: Yes (Discussed via telephone by SW) Additional Comments: LATE ENTRY FROM 11/23/2018: Pt discussed in team meeting. Pt did not attend meeting due to being observed to be asleep. Pt was not easily roused. Pt's progress and bx on the unit review and discussed. Pt is not aggressive or assaultive on the unit. Pt requires frequent re-direction and prompting due to cognitive deficits and impairment. Pt is irritable and agitated at times. Pt is compliant with prescribed medications. Pt's medications reviewed and discussed. Pt is clinically accepted to [facility] and is awaiting financial approval. Pt's family scheduled to meet with admission at the facility on 11/25/2018. SW will continue to follow case. - Problem Aggressive Behavior Date Initiated: 11/11/18 Time Initiated: 16:03 Progress toward outcomes: resolved (Pt is not displaying or exhibiting aggresisve/assaultive bx's.) Agitation Date Initiated: 11/11/18 Time Initiated: 16:03 Progress toward outcomes: improved (Pt is less agitated and irirtable. Pt is re- directable.) - Discharge / Continuing Care Discharge to:: Snf Facility (Pt is clinically accepted to [facility]. Pending financial approval. ) Behavioral Health Services: Other (Medication management; structured group therapy) Health Needs: Follow up care/test, Doctor appointments, Special equipment, Nutritional, Medications/Rx, Educational, Recreational/Social
[2018-11-24] MEDS: Divalproex 125 mg Sprinkle Capsule PO SCH ×2 (10:09→17:49)
[2018-11-24] MEDS: Omega-3-Acid Ethyl Esters 1 GM Cap PO SCH (10:09)
--- NOTE | 2018-11-24 15:49 | PCM.PYCHPN ---
Psychiatric Progress Note - Psychiatric Progress Note Patient seen today, length of contact: Pt evaluated, case discussed w/ team, chart reviewed Patient Chief Complaint: pt seen common area, seated in martha chair, appears to be writing lets. reports "doing Just fine". staff report is less irritable. steam powerplant supervisor in communication with ltc related to placement. pt rx adherent. requires total care. Problems Identified/Issues Discussed: alteration in cognition alteration in self care Medical Problems: per chart pt being followed by hospitalist Diagnostic Results: per psychiatry per medicine per nursing per social work per recreational therapist DSM 5 Symptoms Update: improving irritability Medication Change: No Medical Record Reviewed: Yes Consults ordered or reviewed: pt being followed by medical team Mental Status Examination - Cognitive Function Orientation: Person, Place ("Hospital"), Time ("November 2018") Memory: Impaired Concentration: Poor Association: Loose Decription of patient's judgement and insights: attention and concentration improving somewhat impaired - Mood Mood: Neutral - Affect Affect: Constricted - Speech Speech: Soft - Formal Thought Process Formal Thought Process: Loosening of associations - Suicidal Ideation Suicidal Ideation: No - Homicidal Ideation Homicidal Ideation: No Goal/Treatment Plan - Goal/Treatment Plan Need for Continued Stay: Severe functional impairment Progress Toward Problem(s) and Goals/Treatment Plan: inpt milieu adjust meds per status steam powerplant supervisor in contact with family member vital signs clinical assessment per protocol and per clinical status discharge planning in progress pending ltc placement requires total care steam powerplant supervisor in contract ltc options Estimated Date of D/C: 11/25/18 - Smoking Cessation Smoking Cessation Initiated: No Reason for not providing: defers
[2018-11-25] MEDS: Divalproex 125 mg Sprinkle Capsule PO SCH ×2 (08:26→16:03)
[2018-11-25] MEDS: Omega-3-Acid Ethyl Esters 1 GM Cap PO SCH (08:28)
--- NOTE | 2018-11-25 16:50 | PCM.PYCHPN ---
Psychiatric Progress Note - Psychiatric Progress Note Patient seen today, length of contact: Pt evaluated, case discussed w/ team, chart reviewed Patient Chief Complaint: pt seen seated near the nurse's station, appears to reading newspaper, smiles at account underwriter states "doing okay". staff report pt wonders at times requires redirection, pt was seen by dietary today, calorie count in progress Problems Identified/Issues Discussed: alteration in cognition alteration in self care Medical Problems: per chart pt being followed by hospitalist pt being followed by dietition Diagnostic Results: per psychiatry per medicine per nursing per social work per recreational therapist DSM 5 Symptoms Update: appears to be reaching baseline cognitive status requires redirection for adherence po intake staff report pt requires redirection with po intake t Medication Change: No Medical Record Reviewed: Yes Consults ordered or reviewed: pt seen by dietition today pt being followed by medical team Mental Status Examination - Cognitive Function Orientation: Person, Place ("Hospital"), Time ("November 2018") Memory: Impaired Attention: Poor Concentration: Poor Association: Loose Decription of patient's judgement and insights: attention and concentration improving somewhat but remains significantly impaired impaired po intake - Mood Mood: Neutral - Affect Affect: Constricted - Speech Speech: Soft - Formal Thought Process Formal Thought Process: Loosening of associations - Suicidal Ideation Suicidal Ideation: No - Homicidal Ideation Homicidal Ideation: No Goal/Treatment Plan - Goal/Treatment Plan Need for Continued Stay: Severe functional impairment Progress Toward Problem(s) and Goals/Treatment Plan: inpt milieu adjust meds per status java development team lead in contact with family member vital signs clinical assessment per protocol and per clinical status discharge planning in progress pending ltc placement requires total care java development team lead in contract ltc options Estimated Date of D/C: 11/25/18 - Smoking Cessation Smoking Cessation Initiated: No Reason for not providing: defers
[2018-11-26] MEDS: Omega-3-Acid Ethyl Esters 1 GM Cap PO SCH (08:15)
[2018-11-26] MEDS: Divalproex 125 mg Sprinkle Capsule PO SCH ×2 (08:16→17:28)
--- NOTE | 2018-11-26 12:23 | PCM.PYCHPN ---
Psychiatric Progress Note - Psychiatric Progress Note Patient seen today, length of contact: Pt evaluated, case discussed w/ team, chart reviewed Patient Chief Complaint: I want my Problems Identified/Issues Discussed: pt seen in bed, presenting with anxious mood and affect, needs frequent re direction by staff, no reported side effects of medications, denied suicidal or homicidal ideation denied perceptual disturbances Medication Change: No Medical Record Reviewed: Yes Mental Status Examination - Cognitive Function Orientation: Person, Place ("[facility]"), Time ("November 2018") Memory: Impaired Attention: Poor Concentration: Poor Association: Loose - Mood Mood: Neutral - Affect Affect: Constricted - Speech Speech: Soft - Formal Thought Process Formal Thought Process: Loosening of associations - Suicidal Ideation Suicidal Ideation: No - Homicidal Ideation Homicidal Ideation: No Goal/Treatment Plan - Goal/Treatment Plan Need for Continued Stay: Severe functional impairment Progress Toward Problem(s) and Goals/Treatment Plan: continue current medications Estimated Date of D/C: 11/25/18
[2018-11-27] MEDS: Divalproex 125 mg Sprinkle Capsule PO SCH ×2 (09:08→16:39)
[2018-11-27] MEDS: Omega-3-Acid Ethyl Esters 1 GM Cap PO SCH (09:11)
--- NOTE | 2018-11-27 12:05 | PCM.PYCHPN ---
Psychiatric Progress Note - Psychiatric Progress Note Patient seen today, length of contact: Pt evaluated, case discussed w/ team, chart reviewed Patient Chief Complaint: I am alright Problems Identified/Issues Discussed: pt seen in chair, confised oriented to person only, no reported behavioural disturbances, no noted side effects of medications, awaiting placement DSM 5 Symptoms Update: major neurocognitive disorder Medication Change: No Medical Record Reviewed: Yes Mental Status Examination - Cognitive Function Orientation: Person, Place ("Hospital"), Time ("November 2018") Memory: Impaired Attention: Poor Concentration: Poor Association: Loose - Mood Mood: Neutral - Affect Affect: Constricted - Speech Speech: Soft - Formal Thought Process Formal Thought Process: Loosening of associations - Suicidal Ideation Suicidal Ideation: No - Homicidal Ideation Homicidal Ideation: No Goal/Treatment Plan - Goal/Treatment Plan Need for Continued Stay: Severe functional impairment Progress Toward Problem(s) and Goals/Treatment Plan: continue current medications disposition planning Estimated Date of D/C: 11/25/18
[2018-11-28] MEDS: Bismuth Subsalicylate 262 mg/15 ml Sus (240 ml) PO PRN (01:22)
[2018-11-28] MEDS: Omega-3-Acid Ethyl Esters 1 GM Cap PO SCH (08:41)
[2018-11-28] MEDS: Divalproex 125 mg Sprinkle Capsule PO SCH ×2 (08:41→16:49)
--- NOTE | 2018-11-28 09:40 | PCM.PYCHPN ---
Psychiatric Progress Note - Psychiatric Progress Note Patient seen today, length of contact: Pt evaluated, case discussed w/ team, chart reviewed Patient Chief Complaint: Inability to care for self Problems Identified/Issues Discussed: No new events over the weekend. Patient pending adjunct faculty for medical terminology placement. No aggression or agitation. He continues to have chronic deficits in memory and limited insight/judgment due to dementia. Diagnostic Results: VPA 65.7 on 11/18/18 Medication Change: No Medical Record Reviewed: Yes Consults ordered or reviewed: Medicine consult Mental Status Examination - Cognitive Function Orientation: Person, Place ("[facility]"), Time ("November 2018") Memory: Impaired Attention: Poor Concentration: Poor Association: Loose Decription of patient's judgement and insights: Chronic poor I/J due to dementia - Mood Mood: Neutral - Affect Affect: Constricted - Speech Speech: Soft - Formal Thought Process Formal Thought Process: Loosening of associations Psychotic Thoughts and Behaviors: No AH/VH/paranoia - Suicidal Ideation Suicidal Ideation: No - Homicidal Ideation Homicidal Ideation: No Goal/Treatment Plan - Goal/Treatment Plan Need for Continued Stay: Severe functional impairment Progress Toward Problem(s) and Goals/Treatment Plan: Dementia with behavioral disturbances; now improved; patient is psychiatrically stable for referral to adjunct faculty for medical terminology placement. -Continue Depakote; VPA 65.7 on 11/18/18 -Continue Seroquel -Continue Aricept -Medicine consult -Case discussed w/ , POA -Disposition planning
--- NOTE | 2018-11-28 14:28 | PCM.BM ---
Treatment Plan Problems - Problems identified on initial assessmt Aggressive Behavior Date Initiated: 11/11/18 Time Initiated: 16:03 Assessment reference: HP, NA Status: Active Priority: 1 Agitation Time Initiated: 16:03 Treatment assets and liabiliti Patient Assests: cooperative, negotiates basic needs Patient Liabilities: dietary restrictions, medical problems, imparied memory - Milieu Protocol Maintain good personal hygiene: daily Encourage regular showers, daily Remind patient to perform daily oral care, daily Assist patient to perform ADL's Conduct patient checks and document Observation sheet: Q15 minutes Maintain personal safety: every shift Educate patient to report safety concerns to staff, every shift Monitor environment for contraband/sharps Medication safety: Monitor for expected outcome, potential side effects: every shift, Assess barriers to learning: every shift, Assess readiness for medication education: every shift Milieu Narrative: Dementia with behavioral disturbances; now improved; patient is psychiatrically stable for referral to custodial placement. -Continue Depakote; VPA 65.7 on 11/18/18 -Continue Seroquel -Continue Aricept -Medicine consult -Case discussed w/ , POA -Disposition planning Family Contact Family involvement: Family/SO is involved Family contact: Patient agrees to contact, Family has been contacted by patient, Telephone contact initiated by staff Family contact name: Adore Chavez- Spouse and POA Family contacted how many times per week?: 2 - Outside Agency [facility] Care involvment: Information-sharing Agency contact number: Discharge/Continuing Care - Education Needs Education Needs: Family Medication, Family Diagnosis/Disease Process, Family Coping Skills, Family Placement options, Family Community resources, Family Activities of Daily Living, Family Nutrition, Family Uses of Medical Equipment, Family Health Practices/Safety, Family Personal Hygiene/Grooming, Family Aftercare Safety Plan - Discharge Discharge Criteria: Tolerates medication w/o severe side effects, Free of agitation, Normal sleep pattern, Ability to care for self, Reduction of target symptoms Discharge to:: Alf Facility (Pt is clinically accepted to [facility]. Pending financial approval. ) - Additional Comments 11/14/18 15:44 Pt discussed in team meeting. Pt observed to be asleep and not aroused at the time. Reason for admission reviewed and discussed. Pt admitted due to aggressive and combative bx's at [facility]. Pt's spouse is POA. Pt's medications reviewed and discussed. Pt's medical and social issues reviewed and discussed. tx plan reviewed and discussed. SW to continue to follow case. SW to contact spouse for collateral information. - Treatment Team Participation Patient/Family/SO Statement: Dementia with behavioral disturbances; now improved; patient is psychiatrically stable for referral to medical terminologist placement. -Continue Depakote; VPA 65.7 on 11/18/18 -Continue Seroquel -Continue Aricept -Medicine consult -Case discussed w/ , POA -Disposition planning Discussed with Family/SO: No Was Patient/Family/SO present at Treatment Team Meeting: Yes Treatment Plan Review Patient participation: No (Pt is cognitively impaired; POA on file) Family/SO/Caregiver participation: Yes (Reviewed with spouse/POA via telephone) Additional Comments: Pt discussed in team meeting. Pt's progress and bx on the unit reviewed and discussed. Pt has not displayed any aggressive/assaultive bx's. Pt is less irritable and agitated when re-directed. Pt continues to present with poor memory and requires frequent re-direction and prompting. Pt constantly getting up without assistance and re-directed by nurses. Pt has been observed to be engaged with peer. Pt is compliant with prescribed medications. Pt's appetite continues to be poor. Pt refusing to eat at times. Pt's sleep is improving. Pt's medications reviewed and discussed. Pt is pending custodial care placement. Pt's spouse and son visited [facility] on 11/25/2018 and are currently in the process of determining facilities between [facility] vs. [facility]. SW will continue to follow case. - Problem Aggressive Behavior Date Initiated: 11/11/18 Time Initiated: 16:03 Progress toward outcomes: resolved (Pt is not displaying or exhibiting aggresisve/assaultive bx's.) Agitation Date Initiated: 11/11/18 Time Initiated: 16:03 Progress toward outcomes: improved (Pt is less agitated and irirtable. Pt is re- directable.) - Discharge / Continuing Care Discharge to:: Alf Facility ([facility]) Behavioral Health Services: Other (Medication management; structural environment and groups) Health Needs: Follow up care/test, Doctor appointments, Special equipment, Nutritional, Medications/Rx, Educational, Recreational/Social
[2018-11-29] MEDS: Omega-3-Acid Ethyl Esters 1 GM Cap PO SCH (09:14)
[2018-11-29] MEDS: Divalproex 125 mg Sprinkle Capsule PO SCH ×2 (09:14→17:18)
--- NOTE | 2018-11-29 09:39 | PCM.PYCHPN ---
Psychiatric Progress Note - Psychiatric Progress Note Patient seen today, length of contact: Pt evaluated, case discussed w/ team, chart reviewed Patient Chief Complaint: Inability to care for self Problems Identified/Issues Discussed: No new events. Patient is at his baseline of functioning. Patient pending panel sewer placement. No aggression or agitation. He continues to have chronic deficits in memory and limited insight/judgment due to dementia. Diagnostic Results: VPA 65.7 on 11/18/18 Medication Change: No Medical Record Reviewed: Yes Consults ordered or reviewed: Medicine consult Mental Status Examination - Cognitive Function Orientation: Person, Place ("[facility]"), Time ("November 2018") Memory: Impaired Attention: Poor Concentration: Poor Association: Loose Decription of patient's judgement and insights: Chronic poor I/J due to dementia - Mood Mood: Neutral - Affect Affect: Constricted - Speech Speech: Soft - Formal Thought Process Formal Thought Process: Loosening of associations Psychotic Thoughts and Behaviors: No AH/VH/paranoia - Suicidal Ideation Suicidal Ideation: No - Homicidal Ideation Homicidal Ideation: No Goal/Treatment Plan - Goal/Treatment Plan Need for Continued Stay: Severe functional impairment Progress Toward Problem(s) and Goals/Treatment Plan: Dementia with behavioral disturbances; now improved; patient is psychiatrically stable for referral to panel sewer placement. -Continue Depakote; VPA 65.7 on 11/18/18 -Continue Seroquel -Continue Aricept -Medicine consult -Case discussed w/ , POA -Disposition planning
[2018-11-29] MEDS ORDERED: Bismuth Subsalicylate 262 mg Chew Tab PO PRN ×2 (23:38→23:40)
[2018-11-30] MEDS: Divalproex 125 mg Sprinkle Capsule PO SCH ×2 (08:01→16:15)
[2018-11-30] MEDS: Omega-3-Acid Ethyl Esters 1 GM Cap PO SCH (08:01)
--- NOTE | 2018-11-30 08:19 | PCM.PYCHPN ---
Psychiatric Progress Note - Psychiatric Progress Note Patient seen today, length of contact: Pt evaluated, case discussed w/ team, chart reviewed Patient Chief Complaint: Inability to care for self Problems Identified/Issues Discussed: No events overnight, no agitation or aggression. Patient is at his baseline of functioning. Patient pending terminal press operator placement. He continues to have chronic deficits in memory and limited insight/judgment due to dementia. Diagnostic Results: VPA 65.7 on 11/18/18 Medication Change: No Medical Record Reviewed: Yes Consults ordered or reviewed: Medicine consult Mental Status Examination - Cognitive Function Orientation: Person, Place ("[facility]"), Time ("November 2018") Memory: Impaired Attention: Poor Concentration: Poor Association: Loose Decription of patient's judgement and insights: Chronic poor I/J due to dementia - Mood Mood: Neutral - Affect Affect: Constricted - Speech Speech: Soft - Formal Thought Process Formal Thought Process: Loosening of associations Psychotic Thoughts and Behaviors: No AH/VH/paranoia - Suicidal Ideation Suicidal Ideation: No - Homicidal Ideation Homicidal Ideation: No Goal/Treatment Plan - Goal/Treatment Plan Need for Continued Stay: Severe functional impairment Progress Toward Problem(s) and Goals/Treatment Plan: Dementia with behavioral disturbances; now improved; patient is psychiatrically stable for referral to terminal press operator placement. -Continue Depakote; VPA 65.7 on 11/18/18 -Continue Seroquel -Continue Aricept -Medicine consult -Case discussed w/ , POA -Disposition planning
[2018-12-01] MEDS: Omega-3-Acid Ethyl Esters 1 GM Cap PO SCH (08:02)
[2018-12-01] MEDS: Divalproex 125 mg Sprinkle Capsule PO SCH ×2 (08:04→16:20)
--- NOTE | 2018-12-01 08:38 | PCM.PYCHPN ---
Psychiatric Progress Note - Psychiatric Progress Note Patient seen today, length of contact: Pt evaluated, case discussed w/ team, chart reviewed Patient Chief Complaint: Inability to care for self Problems Identified/Issues Discussed: Patient slept well overnight. No agitation or aggression. Patient is at his baseline of functioning. Patient pending care home placement. He continues to have chronic deficits in memory and limited insight/judgment due to dementia. Diagnostic Results: VPA 65.7 on 11/18/18 Medication Change: No Medical Record Reviewed: Yes Consults ordered or reviewed: Medicine consult Mental Status Examination - Cognitive Function Orientation: Person, Place ("[facility]"), Time ("November 2018") Memory: Impaired Attention: Poor Concentration: Poor Association: Loose Decription of patient's judgement and insights: Chronic poor I/J due to dementia - Mood Mood: Neutral - Affect Affect: Constricted - Speech Speech: Soft - Formal Thought Process Formal Thought Process: Loosening of associations Psychotic Thoughts and Behaviors: No AH/VH/paranoia - Suicidal Ideation Suicidal Ideation: No - Homicidal Ideation Homicidal Ideation: No Goal/Treatment Plan - Goal/Treatment Plan Need for Continued Stay: Severe functional impairment Progress Toward Problem(s) and Goals/Treatment Plan: Dementia with behavioral disturbances; now improved; patient is psychiatrically stable for referral to care home placement. -Continue Depakote; VPA 65.7 on 11/18/18 -Continue Seroquel -Continue Aricept -Medicine consult -Case discussed w/ , POA -Disposition planning
[2018-12-02] MEDS: Divalproex 125 mg Sprinkle Capsule PO SCH ×2 (08:29→17:01)
[2018-12-02] MEDS: Omega-3-Acid Ethyl Esters 1 GM Cap PO SCH (08:31)
--- NOTE | 2018-12-02 08:41 | PCM.PYCHPN ---
Psychiatric Progress Note - Psychiatric Progress Note Patient seen today, length of contact: Pt evaluated, case discussed w/ team, chart reviewed Patient Chief Complaint: Inability to care for self Problems Identified/Issues Discussed: No new events. No agitation or aggression. Patient is at his baseline of functioning. Patient pending salvage determiner placement. He continues to have chronic deficits in memory and limited insight/judgment due to dementia. Diagnostic Results: VPA 65.7 on 11/18/18 Medication Change: No Medical Record Reviewed: Yes Consults ordered or reviewed: Medicine consult Mental Status Examination - Cognitive Function Orientation: Person, Place ("[facility]"), Time ("November 2018") Memory: Impaired Attention: Poor Concentration: Poor Association: Loose Decription of patient's judgement and insights: Chronic poor I/J due to dementia - Mood Mood: Neutral - Affect Affect: Constricted - Speech Speech: Soft - Formal Thought Process Formal Thought Process: Loosening of associations Psychotic Thoughts and Behaviors: No AH/VH/paranoia - Suicidal Ideation Suicidal Ideation: No - Homicidal Ideation Homicidal Ideation: No Goal/Treatment Plan - Goal/Treatment Plan Need for Continued Stay: Severe functional impairment Progress Toward Problem(s) and Goals/Treatment Plan: Dementia with behavioral disturbances; now improved; patient is psychiatrically stable for referral to salvage determiner placement. -Continue Depakote; VPA 65.7 on 11/18/18 -Continue Seroquel -Continue Aricept -Medicine consult -Case discussed w/ , POA -Disposition planning
[2018-12-03] MEDS: Omega-3-Acid Ethyl Esters 1 GM Cap PO SCH (08:50)
[2018-12-03] MEDS: Divalproex 125 mg Sprinkle Capsule PO SCH ×2 (08:51→16:11)
--- NOTE | 2018-12-03 10:58 | PCM.PYCHPN ---
Psychiatric Progress Note - Psychiatric Progress Note Patient seen today, length of contact: Pt evaluated, case discussed w/ team, chart reviewed Patient Chief Complaint: pt seen seated near the nurse's station, appears to speaking with peer, report slept well, appetite good, staff report pt rx/treatment, continues to be confused, requires total care per staff. pt. is pending intermediate accountant care placement unable to care for self. Problems Identified/Issues Discussed: alteration in cognition alteration in self care cannot care for self Medical Problems: per chart pt being followed by hospitalist pt being followed by dietition Diagnostic Results: per psychiatry per medicine per nursing per social work per recreational therapist DSM 5 Symptoms Update: appears to be baseline significant cognitive impairment Medication Change: No Medical Record Reviewed: Yes Consults ordered or reviewed: pt being followed by medical team Mental Status Examination - Cognitive Function Orientation: Person, Place ("Hospital"), Time ("November 2018") Memory: Impaired Attention: Poor Concentration: Poor Association: Loose Decription of patient's judgement and insights: impaired - Mood Mood: Neutral - Affect Affect: Constricted - Speech Speech: Soft - Formal Thought Process Formal Thought Process: Loosening of associations - Suicidal Ideation Suicidal Ideation: No - Homicidal Ideation Homicidal Ideation: No Goal/Treatment Plan - Goal/Treatment Plan Need for Continued Stay: Severe functional impairment Progress Toward Problem(s) and Goals/Treatment Plan: inpt milieu adjust meds per status associate team physician in contact with family member vital signs clinical assessment per protocol and per clinical status discharge planning in progress pending ltc placement requires total care associate team physician in contract ltc options Estimated Date of D/C: 11/25/18 - Smoking Cessation Smoking Cessation Initiated: No Reason for not providing: defers
[2018-12-04] MEDS: Divalproex 125 mg Sprinkle Capsule PO SCH ×2 (08:26→16:28)
[2018-12-04] MEDS: Omega-3-Acid Ethyl Esters 1 GM Cap PO SCH (08:28)
--- NOTE | 2018-12-04 16:45 | PCM.PYCHPN ---
Psychiatric Progress Note - Psychiatric Progress Note Patient seen today, length of contact: Pt evaluated, case discussed w/ team, chart reviewed Patient Chief Complaint: pt seen seated near the nurse's station, appears to speaking with peer, report slept well, appetite good, staff report pt rx/treatment, continues to be confused, requires total care per staff. pt. is pending marine oil terminal superintendent care placement significant cognitive impairment.. Problems Identified/Issues Discussed: alteration in cognition alteration in self care cannot care for self Medical Problems: per chart pt being followed by hospitalist pt being followed by dietition Diagnostic Results: per psychiatry per medicine per nursing per social work per recreational therapist DSM 5 Symptoms Update: appears to be reaching baseline cognitive function significant impairment requires total care Medication Change: No Medical Record Reviewed: Yes Consults ordered or reviewed: pt being followed by medical team Mental Status Examination - Cognitive Function Orientation: Person, Place ("Hospital"), Time ("November 2018") Memory: Impaired Attention: Poor Concentration: Poor Association: Loose Decription of patient's judgement and insights: impaired - Mood Mood: Neutral - Affect Affect: Constricted - Speech Speech: Soft - Formal Thought Process Formal Thought Process: Loosening of associations - Suicidal Ideation Suicidal Ideation: No - Homicidal Ideation Homicidal Ideation: No Goal/Treatment Plan - Goal/Treatment Plan Need for Continued Stay: Severe functional impairment Progress Toward Problem(s) and Goals/Treatment Plan: inpt milieu adjust meds per status team manager in contact with family member vital signs clinical assessment per protocol and per clinical status discharge planning in progress pending ltc placement requires total care team manager in contract ltc options Estimated Date of D/C: 12/16/18 - Smoking Cessation Smoking Cessation Initiated: No Reason for not providing: pt defers
[2018-12-05] MEDS: Divalproex 125 mg Sprinkle Capsule PO SCH ×2 (08:19→16:36)
[2018-12-05] MEDS: Omega-3-Acid Ethyl Esters 1 GM Cap PO SCH (08:20)
--- NOTE | 2018-12-05 08:30 | PCM.PYCHPN ---
Psychiatric Progress Note - Psychiatric Progress Note Patient seen today, length of contact: Pt evaluated, case discussed w/ team, chart reviewed Patient Chief Complaint: Inability to care for self Problems Identified/Issues Discussed: No significant events over the weekend. No agitation or aggression. Patient is at his baseline of functioning. Patient pending nursing home placement. He continues to have chronic deficits in memory and limited insight/judgment due to dementia. Diagnostic Results: VPA 65.7 on 11/18/18 Medication Change: No Medical Record Reviewed: Yes Consults ordered or reviewed: Medicine consult Mental Status Examination - Cognitive Function Orientation: Person, Place ("Hospital") Memory: Impaired Attention: Poor Concentration: Poor Association: Loose Fund of Knowledge: Poor Decription of patient's judgement and insights: Chronic poor I/J due to dementia - Mood Mood: Neutral - Affect Affect: Broad - Speech Speech: Soft - Formal Thought Process Formal Thought Process: Loosening of associations Psychotic Thoughts and Behaviors: No AH/VH/paranoia/delusions - Suicidal Ideation Suicidal Ideation: No - Homicidal Ideation Homicidal Ideation: No Goal/Treatment Plan - Goal/Treatment Plan Progress Toward Problem(s) and Goals/Treatment Plan: Dementia with behavioral disturbances; now improved; patient is psychiatrically stable for referral to machine sign writer placement. -Continue Depakote; VPA 65.7 on 11/18/18 -Continue Seroquel -Continue Aricept -Medicine consult -Case discussed w/ , POA -Disposition planning- pending machine sign writer placement Estimated Date of D/C: 12/16/18
--- NOTE | 2018-12-06 08:08 | PCM.PYCHPN ---
Psychiatric Progress Note - Psychiatric Progress Note Patient seen today, length of contact: Pt evaluated, case discussed w/ team, chart reviewed Patient Chief Complaint: Inability to care for self Problems Identified/Issues Discussed: No new events. No agitation or aggression. Patient is at his baseline of functioning. Patient pending adjunct faculty for medical terminology placement. He continues to have chronic deficits in memory and limited insight/judgment due to dementia. Diagnostic Results: VPA 65.7 on 11/18/18 Medication Change: No Medical Record Reviewed: Yes Consults ordered or reviewed: Medicine consult Mental Status Examination - Cognitive Function Orientation: Person, Place ("Hospital") Memory: Impaired Attention: Poor Concentration: Poor Association: Loose Fund of Knowledge: Poor Decription of patient's judgement and insights: Chronic poor I/J due to dementia - Mood Mood: Neutral - Affect Affect: Broad - Speech Speech: Appropriate - Formal Thought Process Formal Thought Process: Loosening of associations Psychotic Thoughts and Behaviors: No AH/VH/paranoia/delusions - Suicidal Ideation Suicidal Ideation: No - Homicidal Ideation Homicidal Ideation: No Goal/Treatment Plan - Goal/Treatment Plan Progress Toward Problem(s) and Goals/Treatment Plan: Dementia with behavioral disturbances; now improved; patient is psychiatrically stable for referral to [facility] placement. -Continue Depakote; VPA 65.7 on 11/18/18 -Continue Seroquel -Continue Aricept -Medicine consult -Case discussed w/ , POA -Disposition planning- pending adjunct faculty for medical terminology placement
[2018-12-06] MEDS: Divalproex 125 mg Sprinkle Capsule PO SCH ×2 (08:23→16:09)
[2018-12-06] MEDS: Omega-3-Acid Ethyl Esters 1 GM Cap PO SCH (08:24)
--- NOTE | 2018-12-06 08:26 | PCM.BM ---
Treatment Plan Problems - Problems identified on initial assessmt Aggressive Behavior Date Initiated: 11/11/18 Time Initiated: 16:03 Assessment reference: HP, NA Status: Active Priority: 1 Agitation Time Initiated: 16:03 Treatment assets and liabiliti Patient Assests: cooperative, negotiates basic needs Patient Liabilities: dietary restrictions, medical problems, imparied memory - Milieu Protocol Maintain good personal hygiene: daily Encourage regular showers, daily Remind patient to perform daily oral care, daily Assist patient to perform ADL's Conduct patient checks and document Observation sheet: Q15 minutes Maintain personal safety: every shift Educate patient to report safety concerns to staff, every shift Monitor environment for contraband/sharps Medication safety: Monitor for expected outcome, potential side effects: every shift, Assess barriers to learning: every shift, Assess readiness for medication education: every shift Milieu Narrative: Dementia with behavioral disturbances; now improved; patient is psychiatrically stable for referral to senior care placement. -Continue Depakote; VPA 65.7 on 11/18/18 -Continue Seroquel -Continue Aricept -Medicine consult -Case discussed w/ , POA -Disposition planning- pending senior care placement Family Contact Family involvement: Family/SO is involved Family contact: Patient agrees to contact, Family has been contacted by patient, Telephone contact initiated by staff Family contact name: Adoer Chavez- Spouse and POA Family contacted how many times per week?: 2 - Outside Agency [facility] Care involvment: Information-sharing Agency contact number: Discharge/Continuing Care - Education Needs Education Needs: Family Medication, Family Diagnosis/Disease Process, Family Coping Skills, Family Placement options, Family Community resources, Family Activities of Daily Living, Family Nutrition, Family Uses of Medical Equipment, Family Health Practices/Safety, Family Personal Hygiene/Grooming, Family Aftercare Safety Plan - Discharge Discharge Criteria: Tolerates medication w/o severe side effects, Free of agitation, Normal sleep pattern, Ability to care for self, Reduction of target symptoms Discharge to:: Long-Term Facility ([facility] [place]) - Additional Comments 11/14/18 15:44 Pt discussed in team meeting. Pt observed to be asleep and not aroused at the time. Reason for admission reviewed and discussed. Pt admitted due to aggressive and combative bx's at [facility]. Pt's spouse is POA. Pt's medications reviewed and discussed. Pt's medical and social issues reviewed and discussed. tx plan reviewed and discussed. SW to continue to follow case. SW to contact spouse for collateral information. - Treatment Team Participation Patient/Family/SO Statement: Dementia with behavioral disturbances; now improved; patient is psychiatrically stable for referral to senior care placement. -Continue Depakote; VPA 65.7 on 11/18/18 -Continue Seroquel -Continue Aricept -Medicine consult -Case discussed w/ , POA -Disposition planning- pending terminal clerk placement Discussed with Family/SO: No Was Patient/Family/SO present at Treatment Team Meeting: Yes Treatment Plan Review Patient participation: No Family/SO/Caregiver participation: No Additional Comments: Pt's progress reviewed and discussed in team meeting. Pt did not attend, observed to be asleep and not easily aroused. Pt is pending memory care placement at [facility]. Pt is clinically accepted; however, family and [facility] fund corporate travel counselor will be meeting on 12/09/2018 to finalize paperwork. Pt is not exhibiting any aggressive or assaultive bx. Pt is irritable when re-directed or needs are not met immediately. Pt is compliant with medications. Pt's sleep is improving. Appetite is good. Pt's spouse and POA visits pt on the unit. SW will continue to follow case. - Problem Aggressive Behavior Date Initiated: 11/11/18 Time Initiated: 16:03 Progress toward outcomes: resolved (Pt is not displaying or exhibiting aggresisve/assaultive bx's.) Agitation Date Initiated: 11/11/18 Time Initiated: 16:03 Progress toward outcomes: improved (Pt is less agitated and irirtable. Pt is re- directable.) - Discharge / Continuing Care Discharge to:: Other (Memory Care at [facility]) Behavioral Health Services: Other (Medication management) Health Needs: Follow up care/test, Doctor appointments, Special equipment, Nutritional, Medications/Rx, Educational, Recreational/Social
[2018-12-07] MEDS: Omega-3-Acid Ethyl Esters 1 GM Cap PO SCH (08:01)
[2018-12-07] MEDS: Divalproex 125 mg Sprinkle Capsule PO SCH ×2 (08:01→17:44)
--- NOTE | 2018-12-07 08:35 | PCM.PYCHPN ---
Psychiatric Progress Note - Psychiatric Progress Note Patient seen today, length of contact: Pt evaluated, case discussed w/ team, chart reviewed Patient Chief Complaint: Inability to care for self Problems Identified/Issues Discussed: No new events overnight. No behavioral issues, agitation or aggression. Patient is at his baseline of functioning. Patient pending [facility] placement. He continues to have chronic deficits in memory and limited insight/judgment due to dementia. Diagnostic Results: VPA 65.7 on 11/18/18 Medication Change: No Medical Record Reviewed: Yes Consults ordered or reviewed: Medicine consult Mental Status Examination - Cognitive Function Orientation: Person, Place ("Hospital") Memory: Impaired Attention: Poor Concentration: Poor Association: Loose Fund of Knowledge: Poor Decription of patient's judgement and insights: Chronic poor I/J due to dementia - Mood Mood: Neutral - Affect Affect: Broad - Speech Speech: Appropriate - Formal Thought Process Formal Thought Process: Loosening of associations Psychotic Thoughts and Behaviors: No AH/VH/paranoia/delusions - Suicidal Ideation Suicidal Ideation: No - Homicidal Ideation Homicidal Ideation: No Goal/Treatment Plan - Goal/Treatment Plan Progress Toward Problem(s) and Goals/Treatment Plan: Dementia with behavioral disturbances; now improved; patient is psychiatrically stable for referral to [facility] placement. -Continue Depakote; VPA 65.7 on 11/18/18 -Continue Seroquel -Continue Aricept -Medicine consult -Case discussed w/ , POA -Disposition planning- pending watermelon inspector placement
--- NOTE | 2018-12-08 08:22 | PCM.PYCHPN ---
Psychiatric Progress Note - Psychiatric Progress Note Patient seen today, length of contact: Pt evaluated, case discussed w/ team, chart reviewed Patient Chief Complaint: Inability to care for self Problems Identified/Issues Discussed: No new events. No behavioral issues. Patient is at his baseline of functioning. Patient pending prison placement. He continues to have chronic deficits in memory and limited insight/judgment due to dementia. Diagnostic Results: VPA 65.7 on 11/18/18 Medication Change: No Medical Record Reviewed: Yes Consults ordered or reviewed: Medicine consult Mental Status Examination - Cognitive Function Orientation: Person, Place ("Hospital") Memory: Impaired Attention: Poor Concentration: Poor Association: Loose Fund of Knowledge: Poor Decription of patient's judgement and insights: Chronic poor I/J due to dementia - Mood Mood: Neutral - Affect Affect: Broad - Speech Speech: Appropriate - Formal Thought Process Formal Thought Process: Loosening of associations Psychotic Thoughts and Behaviors: No AH/VH/paranoia/delusions - Suicidal Ideation Suicidal Ideation: No - Homicidal Ideation Homicidal Ideation: No Goal/Treatment Plan - Goal/Treatment Plan Progress Toward Problem(s) and Goals/Treatment Plan: Dementia with behavioral disturbances; now improved; patient is psychiatrically stable for referral to prison placement. -Continue Depakote; VPA 65.7 on 11/18/18 -Continue Seroquel -Continue Aricept -Medicine consult -Case discussed w/ , POA -Disposition planning- pending terminal operations supervisor placement
[2018-12-08] MEDS: Omega-3-Acid Ethyl Esters 1 GM Cap PO SCH (14:07)
[2018-12-08] MEDS: Divalproex 125 mg Sprinkle Capsule PO SCH ×2 (14:08→19:56)
--- NOTE | 2018-12-09 08:18 | PCM.PYCHPN ---
Psychiatric Progress Note - Psychiatric Progress Note Patient seen today, length of contact: Pt evaluated, case discussed w/ team, chart reviewed Patient Chief Complaint: Inability to care for self Problems Identified/Issues Discussed: No behavioral issues. Patient is at his baseline of functioning. Patient pending medical terminologist placement. He continues to have chronic deficits in memory and limited insight/judgment due to dementia. Diagnostic Results: VPA 65.7 on 11/18/18 Medication Change: No Medical Record Reviewed: Yes Consults ordered or reviewed: Medicine consult Mental Status Examination - Cognitive Function Orientation: Person, Place ("Hospital") Memory: Impaired Attention: Poor Concentration: Poor Association: Loose Fund of Knowledge: Poor Decription of patient's judgement and insights: Chronic poor I/J due to dementia - Mood Mood: Neutral - Affect Affect: Broad - Speech Speech: Appropriate - Formal Thought Process Formal Thought Process: Loosening of associations Psychotic Thoughts and Behaviors: No AH/VH/paranoia/delusions - Suicidal Ideation Suicidal Ideation: No - Homicidal Ideation Homicidal Ideation: No Goal/Treatment Plan - Goal/Treatment Plan Need for Continued Stay: Severe functional impairment Progress Toward Problem(s) and Goals/Treatment Plan: Dementia with behavioral disturbances; now improved; patient is psychiatrically stable for referral to medical terminologist placement. -Continue Depakote; VPA 65.7 on 11/18/18 -Continue Seroquel -Continue Aricept -Medicine consult -Case discussed w/ , POA -Disposition planning- pending medical terminologist placement Estimated Date of D/C: 12/16/18
[2018-12-09] MEDS: Omega-3-Acid Ethyl Esters 1 GM Cap PO SCH (08:40)
[2018-12-09] MEDS: Divalproex 125 mg Sprinkle Capsule PO SCH ×2 (08:40→16:44)
[2018-12-10] MEDS: Divalproex 125 mg Sprinkle Capsule PO SCH ×2 (08:19→16:30)
[2018-12-10] MEDS: Omega-3-Acid Ethyl Esters 1 GM Cap PO SCH (08:21)
--- NOTE | 2018-12-10 09:48 | PCM.PYCHPN ---
Psychiatric Progress Note - Psychiatric Progress Note Patient seen today, length of contact: Pt evaluated, case discussed w/ team, chart reviewed Patient Chief Complaint: pt has remained very anxious and making banging noises and still confused but is less agitated but remains with poor insight and need stabilization. Medication Change: No Medical Record Reviewed: Yes Mental Status Examination - Cognitive Function Orientation: Person, Place ("Hospital") Memory: Impaired Attention: Poor Concentration: Poor Association: Loose Fund of Knowledge: Poor - Mood Mood: Neutral - Affect Affect: Broad - Speech Speech: Appropriate - Formal Thought Process Formal Thought Process: Loosening of associations - Suicidal Ideation Suicidal Ideation: No - Homicidal Ideation Homicidal Ideation: No Goal/Treatment Plan - Goal/Treatment Plan Need for Continued Stay: Severe functional impairment Progress Toward Problem(s) and Goals/Treatment Plan: continue the current meds . pt is waiting for intermission coordinator placement. Estimated Date of D/C: 12/16/18
[2018-12-11] MEDS: Divalproex 125 mg Sprinkle Capsule PO SCH ×2 (08:08→16:09)
[2018-12-11] MEDS: Omega-3-Acid Ethyl Esters 1 GM Cap PO SCH (08:09)
--- NOTE | 2018-12-11 14:55 | PCM.PYCHPN ---
Psychiatric Progress Note - Psychiatric Progress Note Patient seen today, length of contact: Pt evaluated, case discussed w/ team, chart reviewed Patient Chief Complaint: pt has been less anxious today and not making banging noises and still confused but is less agitated but remains with poor insight and need stabilization. Medication Change: No Medical Record Reviewed: Yes Mental Status Examination - Cognitive Function Orientation: Person, Place ("Hospital") Memory: Impaired Attention: Poor Concentration: Poor Association: Loose Fund of Knowledge: Poor - Mood Mood: Neutral - Affect Affect: Broad - Speech Speech: Appropriate - Formal Thought Process Formal Thought Process: Loosening of associations - Suicidal Ideation Suicidal Ideation: No - Homicidal Ideation Homicidal Ideation: No Goal/Treatment Plan - Goal/Treatment Plan Need for Continued Stay: Severe functional impairment Progress Toward Problem(s) and Goals/Treatment Plan: continue the current meds . pt is waiting for intermediate placement. Estimated Date of D/C: 12/16/18
[2018-12-12] MEDS: Omega-3-Acid Ethyl Esters 1 GM Cap PO SCH (08:12)
[2018-12-12] MEDS: Divalproex 125 mg Sprinkle Capsule PO SCH ×2 (08:13→17:04)
--- NOTE | 2018-12-12 08:33 | PCM.PYCHPN ---
Psychiatric Progress Note - Psychiatric Progress Note Patient seen today, length of contact: Pt evaluated, case discussed w/ team, chart reviewed Patient Chief Complaint: Inability to care for self Problems Identified/Issues Discussed: No new events over the weekend. Patient is at his baseline of functioning. Patient pending intermediate placement. He continues to have chronic deficits in memory and limited insight/judgment due to dementia. Diagnostic Results: VPA 65.7 on 11/18/18 Medication Change: No Medical Record Reviewed: Yes Consults ordered or reviewed: Medicine consult Mental Status Examination - Cognitive Function Orientation: Person, Place ("Hospital") Memory: Impaired Attention: Poor Concentration: Poor Association: Loose Fund of Knowledge: Poor Decription of patient's judgement and insights: Chronic poor I/J due to dementia - Mood Mood: Neutral - Affect Affect: Broad - Speech Speech: Appropriate - Formal Thought Process Formal Thought Process: Loosening of associations Psychotic Thoughts and Behaviors: No AH/VH/paranoia/delusions - Suicidal Ideation Suicidal Ideation: No - Homicidal Ideation Homicidal Ideation: No Goal/Treatment Plan - Goal/Treatment Plan Progress Toward Problem(s) and Goals/Treatment Plan: Dementia with behavioral disturbances; now improved; patient is psychiatrically stable for referral to intermediate placement. -Continue Depakote; VPA 65.7 on 11/18/18 -Continue Seroquel -Continue Aricept -Medicine consult -Case discussed w/ , POA -Disposition planning- pending truck terminal manager placement Estimated Date of D/C: 12/16/18
--- NOTE | 2018-12-12 12:06 | PCM.BM ---
Treatment Plan Problems - Problems identified on initial assessmt Aggressive Behavior Date Initiated: 11/11/18 Time Initiated: 16:03 Assessment reference: HP, NA Status: Active Priority: 1 Agitation Time Initiated: 16:03 Treatment assets and liabiliti Patient Assests: cooperative, negotiates basic needs Patient Liabilities: dietary restrictions, medical problems, imparied memory - Milieu Protocol Maintain good personal hygiene: daily Encourage regular showers, daily Remind patient to perform daily oral care, daily Assist patient to perform ADL's Conduct patient checks and document Observation sheet: Q15 minutes Maintain personal safety: every shift Educate patient to report safety concerns to staff, every shift Monitor environment for contraband/sharps Medication safety: Monitor for expected outcome, potential side effects: every shift, Assess barriers to learning: every shift, Assess readiness for medication education: every shift Milieu Narrative: Dementia with behavioral disturbances; now improved; patient is psychiatrically stable for referral to residential placement. -Continue Depakote; VPA 65.7 on 11/18/18 -Continue Seroquel -Continue Aricept -Medicine consult -Case discussed w/ , POA -Disposition planning- pending residential placement Family Contact Family involvement: Family/SO is involved Family contact: Patient agrees to contact, Family has been contacted by patient, Telephone contact initiated by staff Family contact name: Adore Chavez- Spouse and POA Family contacted how many times per week?: 2 - Outside Agency [facility] Care involvment: Information-sharing Agency contact number: Discharge/Continuing Care - Education Needs Education Needs: Family Medication, Family Diagnosis/Disease Process, Family Coping Skills, Family Placement options, Family Community resources, Family Activities of Daily Living, Family Nutrition, Family Uses of Medical Equipment, Family Health Practices/Safety, Family Personal Hygiene/Grooming, Family Aftercare Safety Plan - Discharge Discharge Criteria: Tolerates medication w/o severe side effects, Free of agitation, Normal sleep pattern, Ability to care for self, Reduction of target symptoms Discharge to:: Other (Memory Care at [facility]) - Additional Comments 11/14/18 15:44 Pt discussed in team meeting. Pt observed to be asleep and not aroused at the time. Reason for admission reviewed and discussed. Pt admitted due to aggressive and combative bx's at [facility]. Pt's spouse is POA. Pt's medications reviewed and discussed. Pt's medical and social issues reviewed and discussed. tx plan reviewed and discussed. SW to continue to follow case. SW to contact spouse for collateral information. - Treatment Team Participation Patient/Family/SO Statement: Dementia with behavioral disturbances; now improved; patient is psychiatrically stable for referral to termination clerk placement. -Continue Depakote; VPA 65.7 on 11/18/18 -Continue Seroquel -Continue Aricept -Medicine consult -Case discussed w/ , POA -Disposition planning- pending residential placement Discussed with Family/SO: No Was Patient/Family/SO present at Treatment Team Meeting: Yes Treatment Plan Review Patient participation: No Family/SO/Caregiver participation: Yes (Discussed with spouse and son via telephone) Additional Comments: Pt discussed in team meeting. Pt did not attend meeting. Pt observed to be resting and asleep in room 305-1. Pts' progress and bx on the unit reviewed and discussed. Pt continues to display irritability and agitation when re-directed. Pt's memory is poor. Pt presents with severe cognitive deficits. No aggressive or assaultive bx's displayed on the unit. Pt is compliant with prescribed medications. Pt is pending placement to [facility]. Pt is pending transfer to facility this week. SW will continue to follow case. - Problem Aggressive Behavior Date Initiated: 11/11/18 Time Initiated: 16:03 Progress toward outcomes: resolved (Pt is not displaying or exhibiting aggresisve/assaultive bx's.) Agitation Date Initiated: 11/11/18 Time Initiated: 16:03 Progress toward outcomes: improved (Pt is less agitated and irirtable. Pt is re- directable.) - Discharge / Continuing Care Discharge to:: [facility] (Pt is clinically and financially accepted at [facility].) Behavioral Health Services: Outpatient therapy, Other (Medication management) Health Needs: Follow up care/test, Doctor appointments, Special equipment, Nutritional, Medications/Rx, Educational, Recreational/Social
--- NOTE | 2018-12-13 08:23 | PCM.PYCHPN ---
Psychiatric Progress Note - Psychiatric Progress Note Patient seen today, length of contact: Pt evaluated, case discussed w/ team, chart reviewed Patient Chief Complaint: Inability to care for self Problems Identified/Issues Discussed: No new events overnight. No behavioral disturbances. Patient is at his baseline of functioning. Patient pending nursing home placement. He continues to have chronic deficits in memory and limited insight/judgment due to dementia. Diagnostic Results: VPA 65.7 on 11/18/18 Medication Change: No Medical Record Reviewed: Yes Consults ordered or reviewed: Medicine consult Mental Status Examination - Cognitive Function Orientation: Person, Place ("Hospital") Memory: Impaired Attention: Poor Concentration: Poor Association: Loose Fund of Knowledge: Poor Decription of patient's judgement and insights: Chronic poor I/J due to dementia - Mood Mood: Neutral - Affect Affect: Broad - Speech Speech: Appropriate - Formal Thought Process Formal Thought Process: Loosening of associations Psychotic Thoughts and Behaviors: No AH/VH/paranoia/delusions - Suicidal Ideation Suicidal Ideation: No - Homicidal Ideation Homicidal Ideation: No Goal/Treatment Plan - Goal/Treatment Plan Need for Continued Stay: Severe functional impairment Progress Toward Problem(s) and Goals/Treatment Plan: Dementia with behavioral disturbances; now improved; patient is psychiatrically stable for referral to termite control technician placement. -Continue Depakote; VPA 65.7 on 11/18/18 -Continue Seroquel -Continue Aricept -Medicine consult -Case discussed w/ , POA -Disposition planning- pending termite control technician placement Estimated Date of D/C: 12/16/18
[2018-12-13] MEDS: Divalproex 125 mg Sprinkle Capsule PO SCH ×2 (10:41→17:38)
[2018-12-13] MEDS: Omega-3-Acid Ethyl Esters 1 GM Cap PO SCH (10:41)
[2018-12-14 06:38] LABS: BASO % 0.9 % (0.0-2.0); EOS # 0.1 K/uL (0.0-0.7); EOS % 1.9 % (0.0-4.0); HEMOGLOBIN 12.9 g/dL (12.0-18.0); LYMPH # 1.5 K/uL (1.0-4.3); LYMPH % 28.5 % (20.0-40.0); MEAN CELL VOLUME 95.5 fl (80.0-94.0); MEAN CORPUSCULAR HEMOGLOBIN 32.6 pg (27.0-31.0); MEAN CORPUSCULAR HGB CONC 34.1 g/dL (33.0-37.0); MEAN PLATELET VOLUME 8.7 fl (7.2-11.7); MONO # 0.5 K/uL (0.0-0.8); NEUT # 3.1 K/uL (1.8-7.0); NEUT % 59.7 % (50.0-75.0); NRBC % 0.1 % (0.0-0.0); RBC 3.98 Mil/uL (4.40-5.90); RED CELL DISTRIBUTION WIDTH 14.3 % (11.5-14.5); WHITE BLOOD COUNT 5.1 K/uL (4.8-10.8)
[2018-12-14] MEDS: Omega-3-Acid Ethyl Esters 1 GM Cap PO SCH (08:13)
[2018-12-14] MEDS: Divalproex 125 mg Sprinkle Capsule PO SCH ×2 (08:13→16:31)
[2018-12-14 08:28] LABS: ALB/GLOB RATIO 1.4 (1.0-2.1); ALBUMIN 4.1 g/dL (3.5-5.0); ALT/SGPT 21 U/L (21-72); AST/SGOT 26 U/L (17-59); BLOOD UREA NITROGEN 26 mg/dl (9-20); CALCIUM 9.6 mg/dL (8.4-10.2); GFR NON-AFRICAN AMERICAN > 60
--- NOTE | 2018-12-14 08:49 | PCM.PYCHPN ---
Psychiatric Progress Note - Psychiatric Progress Note Patient seen today, length of contact: Pt evaluated, case discussed w/ team, chart reviewed Patient Chief Complaint: Inability to care for self Problems Identified/Issues Discussed: No behavioral disturbances. Patient is at his baseline of functioning. Patient pending care home placement. He continues to have chronic deficits in memory and limited insight/judgment due to dementia. Diagnostic Results: VPA 65.7 on 11/18/18 Medication Change: No Medical Record Reviewed: Yes Consults ordered or reviewed: Medicine consult Mental Status Examination - Cognitive Function Orientation: Person, Place ("Hospital") Memory: Impaired Attention: Poor Concentration: Poor Association: Loose Fund of Knowledge: Poor Decription of patient's judgement and insights: Chronic poor I/J due to dementia - Mood Mood: Neutral - Affect Affect: Broad - Speech Speech: Appropriate - Formal Thought Process Formal Thought Process: Loosening of associations Psychotic Thoughts and Behaviors: No AH/VH/paranoia/delusions - Suicidal Ideation Suicidal Ideation: No - Homicidal Ideation Homicidal Ideation: No Goal/Treatment Plan - Goal/Treatment Plan Need for Continued Stay: Severe functional impairment Progress Toward Problem(s) and Goals/Treatment Plan: Dementia with behavioral disturbances; now improved; patient is psychiatrically stable for referral to care home placement. -Continue Depakote; VPA 65.7 on 11/18/18 -Continue Seroquel -Continue Aricept -Medicine consult -Case discussed w/ , POA -Disposition planning- pending watermelon inspector placement Estimated Date of D/C: 12/16/18
[2018-12-14 12:54] LABS: C DIFF TOXIN A B NEGATIVE (NEGATIVE)
[2018-12-14 15:22] LABS: FECAL LEUKOCYTES NEGATIVE (NEGATIVE)
[2018-12-15 02:57] LABS: URINE BILIRUBIN NEGATIVE (NEGATIVE); URINE BLOOD NEGATIVE (NEGATIVE); URINE CLARITY CLEAR (Clear); URINE COLOR YELLOW (YELLOW); URINE GLUCOSE (UA) NEG (NEGATIVE); URINE LEUKOCYTE ESTERASE NEG Leu/uL (Negative); URINE PROTEIN 30 mg/dL (NEGATIVE); URINE UROBILINOGEN 0.2-1.0 mg/dL (0.2-1.0)
[2018-12-15 05:14] VITALS: PULSE 96; RESP 19; TEMP 97.7
--- NOTE | 2018-12-15 08:18 | PCM.PYCHDC ---
Mental Status Examination - Mental Status Examination Orientation: Person Memory: Impaired Mood: Neutral Affect: Broad Speech: Appropriate Attention: Poor Concentration: Poor Association: Loose Fund of Knowledge: Poor Formal Thought Process: Loosening of associations Description of patient's judgement and insight: Chronic poor I/J due to dementia Psychotic Thoughts and Behaviors: No AH/VH/paranoia/delusions Suicidal Ideation: No Current Homicidal Ideation?: No Discharge Summary - Discharge Note Reason for Hospitalization: HPI: 88 yo male w/ h/o dementia, present w/ worsening behavioral disturbances, mood lability, physical aggression towards staff, punching/kicking/screaming, threw a chair at fellow residents, stated he wanted a rifle to shoot everyone and attempting to wander and elope. No acute psychotic symptoms reported. PPHx: H/o inpatient psychiatric treatment at [facility]; current medications- Depakote, Seroquel, Aricept PMHx: HTN, DM, CAD, HLD, gout ALL: NDKA SHx: Resident at [facility]; no current drug/etoh use Laboratory Data: Abnormal Lab Results 12/13/18 12/14/18 12/14/18 18:00 05:41 05:42 Sodium 137 Potassium 3.4 L Chloride 99 Carbon Dioxide 25 Anion Gap 16 BUN 26 H Creatinine 0.9 Est GFR ( Amer) > 60 Est GFR (Non-Af Amer) > 60 POC Glucose (mg/dL) 75 Random Glucose 100 Calcium 9.6 Phosphorus 3.1 Magnesium 1.8 Total Bilirubin 0.8 AST 26 ALT 21 Alkaline Phosphatase 41 Total Protein 7.1 Albumin 4.1 Globulin 2.9 Albumin/Globulin Ratio 1.4 Urine Color Urine Clarity Urine pH Ur Specific Novi Urine Protein Urine Glucose (UA) Urine Ketones Urine Blood Urine Nitrate Urine Bilirubin Urine Urobilinogen Ur Leukocyte Esterase Urine RBC (Auto) Urine Microscopic WBC Hyaline Casts Stool Leukocytes, Qual Negative C. difficile Ag & Toxin Negative 12/14/18 12/15/18 15:42 01:02 Sodium Potassium Chloride Carbon Dioxide Anion Gap BUN Creatinine Est GFR ( Amer) Est GFR (Non-Af Amer) POC Glucose (mg/dL) 115 H Random Glucose Calcium Phosphorus Magnesium Total Bilirubin AST ALT Alkaline Phosphatase Total Protein Albumin Globulin Albumin/Globulin Ratio Urine Color Yellow Urine Clarity Clear Urine pH 6.0 Ur Specific Novi 1.020 Urine Protein 30 Urine Glucose (UA) Neg Urine Ketones Trace Urine Blood Negative Urine Nitrate Negative Urine Bilirubin Negative Urine Urobilinogen 0.2-1.0 Ur Leukocyte Esterase Neg Urine RBC (Auto) 1 Urine Microscopic WBC 1 Hyaline Casts 3-5 H Stool Leukocytes, Qual C. difficile Ag & Toxin Consultations:: List each consultation separately and include: 1. Reason for request. 2. Findings. 3. Follow-up Consultations: Medicine consult Summary of Hospital Course include:: 1. Description of specific treatment plan utilized for patients during their course of treatmen. 2. Summarize the time- course for resolution of acute symptoms and/or regressed behaviors. 3. Describe issues identified and worked on during hospitalization. 4. Describe medication utilized. 5. Describe medical problems identified and treated. 6. Reassessment of suicide risk Summary of Hospital Course: Patient was admitted to the geriatric psychiatry unit. Individual and group therapy were provided. Patient was stabilized on Depakote 250 mg PO BID, Aricept 10 mg PO HS and Seroquel 200 mg PO HS. He currently has stable mood w/o any behavioral disturbances. He is psychiatrically stable for discharge to halfway placement. - Diagnosis (1) Dementia with behavioral disturbance Current Visit: Yes Status: Acute - Final Diagnosis (DSM 5) Condition upon Discharge: STABLE DSM 5: Dementia with behavioral disturbances Disposition: TRANSF TO SNF Follow-up Treatment Plan: Dementia with behavioral disturbances; now improved; patient is psychiatrically stable for discharge to terminologist placemen -Continue Depakote; VPA 65.7 on 11/18/18 -Continue Seroquel -Continue Aricept -Medical medications reconciled by hospitalist consult -Case discussed w/ , POA - Smoking Cessation Smoking Cessation Medication prescribed: No Reason for not providing: Not indicated - Antipsychotic Medications Pt discharged on 2 or more routine antipsychotic medications: No
[2018-12-15] MEDS: Divalproex 125 mg Sprinkle Capsule PO SCH (08:25)
[2018-12-15 08:27] VITALS: BP 145/77
[2018-12-15] MEDS: Omega-3-Acid Ethyl Esters 1 GM Cap PO SCH (08:27)
--- NOTE | 2018-12-16 11:49 | PQF ---
PROVIDER RESPONSE TEXT: Provider was unable to determine a response for this query. REVIEWER QUERY TEXT: Dementia Type and Associated Features Dementia is documented in the Medical Record. Please specify any associated features and the type Such as: -- Senile -- Alzheimer?s -- Vascular -- Frontal -- Frontotemporal -- Lewy body -- Other, please specify Please also specify any behavioral disturbances Such as: -- Aggressive -- Violent -- Combative behavior -- Other, please specify The patient's Clinical Indicators include: XX Query created by: Deanna Manuel on 12/15/2018 3:17 PM Electronically signed by: Kathie Miranda MD 12/16/2018 11:46 AM
== END 2018-12-15 11:30 | DRG 884 ==
LOC: H.ER 14:14 → H.STEP 14:34
PROVIDERS: ADMIT Psychiatry & Neurology Psychiatry; ATTEND Psychiatry & Neurology Psychiatry
PROC: GZHZZZZ Group Psychotherapy (ICD-10-PCS; principal; 2018-11-11)
DX: F03.91 Unspecified dementia, unspecified severity, with behavioral disturbance (principal); I10 Essential (primary) hypertension; E11.9 Type 2 diabetes mellitus without complications; I25.10 Atherosclerotic heart disease of native coronary artery without angina pectoris; E78.5 Hyperlipidemia, unspecified; M10.9 Gout, unspecified

== ENCOUNTER 2018-12-27 21:33 | Inpatient (IN) | payer MEDICARE ==
[2018-12-27] MEDS ORDERED: Sodium Chloride 0.9% 1,000 ML IV STA (22:14)
[2018-12-27 22:30] LABS: BASO % 0.4 % (0.0-2.0); EOS # 0.1 K/uL (0.0-0.7); EOS % 0.9 % (0.0-4.0); LYMPH # 1.7 K/uL (1.0-4.3); LYMPH % 19.3 % (20.0-40.0); MEAN CORPUSCULAR HEMOGLOBIN 32.3 pg (27.0-31.0); MEAN CORPUSCULAR HGB CONC 33.1 g/dL (33.0-37.0); MEAN PLATELET VOLUME 8.8 fl (7.2-11.7); MONO # 0.6 K/uL (0.0-0.8); MONO % 7.3 % (0.0-10.0); NEUT # 6.2 K/uL (1.8-7.0); NEUT % 72.1 % (50.0-75.0); NRBC % 0.1 % (0.0-0.0); RBC 4.93 Mil/uL (4.40-5.90); RED CELL DISTRIBUTION WIDTH 15.1 % (11.5-14.5)
[2018-12-27 22:32] LABS: HEMOGLOBIN 15.9 g/dL (12.0-18.0); MEAN CELL VOLUME 97.6 fl (80.0-94.0); WHITE BLOOD COUNT 8.7 K/uL (4.8-10.8)
[2018-12-27 22:47] LABS: VENOUS BLOOD GAS BASE EXCESS 8.5 mmol/L (0.0-2.0); VENOUS BLOOD GAS PCO2 57 mmHg (40-60); VENOUS BLOOD GAS PO2 23 mm/Hg (30-55)
--- NOTE | 2018-12-27 22:53 | ED PDOC ---
HPI: Altered Mental Status Time Seen by Provider: 12/27/18 21:50 Chief Complaint (Nursing): Weakness/Neurological Deficit Chief Complaint (Provider): Weakness/Neurological Deficit History Per: EMS, Other (usp) History/Exam Limitations: Clinical Condition Onset Of Symptoms: Cannot Confirm Onset Description Of Symptoms: Not At Baseline Exacerbating Factor(s): Unknown Use Of Anticoag/Antiplatlets: No Associated Symptoms: Confused, Not Eating, Weakness Additional Complaint(s): 88 year old male with a history of CAD, HTN, diabetes and dementia presents to the ED for evaluation of weakness, increased confusion and decreased appetite. Patient was sent to this ED from [facility] due to change in behavior. He is a poor historian due to clinical condition. Denies fever. PMD: Teddy Pantoja Past Medical History Reviewed: Historical Data, Nursing Documentation, Vital Signs Vital Signs: Last Vital Signs Temp 98.4 F 12/27/18 22:47 Pulse 102 H 12/27/18 22:47 Resp 16 12/27/18 22:47 BP 117/79 12/27/18 22:47 Pulse Ox 94 L 12/27/18 22:47 Primary Care Provider: Teddy Pantoja - Medical History PMH: CAD, Dementia, Diabetes, HTN - Surgical History Surgical History: No Surg Hx - Home Medications Home Medications: Ambulatory Orders Medication Instructions Recorded Atorvastatin [Lipitor] 40 mg PO DAILY #30 tab 12/15/18 Divalproex [Depakote] 250 mg PO BID #60 tcp 12/15/18 Donepezil [Aricept] 10 mg PO HS #30 tab 12/15/18 Losartan [Cozaar] 25 mg PO DAILY #30 tab 12/15/18 Megestrol [Megace] 20 mg PO DAILY #30 tab 12/15/18 MetFORMIN [glucoPHAGE] 1,000 mg PO BIDWM #60 tab 12/15/18 Iadqk-3-Johu Ethyl Esters 1 GM 1 gm PO DAILY #30 sgl 12/15/18 [Lovaza] QUEtiapine [SEROquel] 200 mg PO HS #30 tab 12/15/18 SITagliptin [Januvia] 100 mg PO DAILY #30 tab 12/15/18 - Allergies Allergies/Adverse Reactions: Allergies Allergy/AdvReac Type Severity Reaction Status Date / Time No Known Allergies Allergy Verified 04/05/19 14:27 Review of Systems ROS Statement: Except As Marked, All Systems Reviewed And Found Negative Constitutional: Positive for: Weakness. Negative for: Fever Neurological: Positive for: Confusion, Altered Mental Status Physical Exam - Reviewed Nursing Documentation Reviewed: Yes Vital Signs Reviewed: Yes - Physical Exam Appears: Positive for: No Acute Distress (appears cachectic) Head Exam: Positive for: ATRAUMATIC, NORMAL INSPECTION, NORMOCEPHALIC Skin: Positive for: Warm, Dry, Pallor ENT: Positive for: Other (dry mucous membranes) Cardiovascular/Chest: Positive for: Tachycardia (with regular rhythm) Respiratory: Positive for: Normal Breath Sounds Gastrointestinal/Abdominal: Positive for: Tenderness (suprapubic) Extremity: Positive for: Normal ROM (moving all extremities) Neurological/Psych: Positive for: Awake, Alert, Normal Tone, Other (follows commands). Negative for: Oriented - Laboratory Results Result Diagrams: 12/27/18 22:25 12/27/18 22:25 Lab Results: pO2 23 mm/Hg (30-55) L 12/27/18 22:38 VBG pH 7.40 (7.32-7.43) 12/27/18 22:38 VBG pCO2 57 mmHg (40-60) 12/27/18 22:38 VBG HCO3 30.0 mmol/L 12/27/18 22:38 VBG Total CO2 37.0 mmol/L (22-28) H 12/27/18 22:38 VBG O2 Sat (Calc) 33.1 % (40-65) L 12/27/18 22:38 VBG Base Excess 8.5 mmol/L (0.0-2.0) H 12/27/18 22:38 VBG Potassium 4.0 mmol/L (3.6-5.2) 12/27/18 22:38 Sodium 153.0 mmol/L (132-148) H 12/27/18 22:38 Chloride 112.0 mmol/L (98-107) H 12/27/18 22:38 Glucose 199 mg/dL (75-110) H 12/27/18 22:38 Lactate 3.6 mmol/L (0.7-2.1) H 12/27/18 22:38 FiO2 21.0 % 12/27/18 22:38 Crit Value Called To kat Mark md 12/27/18 22:38 Crit Value Called By S manuel 12/27/18 22:38 Crit Value Read Back Y 12/27/18 22:38 Blood Gas Notified Time 224512/27/18 22:38 - ECG O2 Sat by Pulse Oximetry: 94 (RA) Pulse Ox Interpretation: Abnormal Medical Decision Making Medical Decision Makin:13 Impression: decreased appetite, confusion and weakness Differential diagnoses include but are not limited to: sepsis, UTI, pneumonua, dehydration, hyponatremia, acute renal failure, anemia Initial Plan: --VBG --EKG --CMP --CBC --Lactic acid --Troponin --Urine dip --NS IV 1,000 mls --Blood cx ----- Scribe Attestation: Documented by Sudha Feilz, acting as a scribe for Kat Mark MD. Provider Scribe Attestation: All medical record entries made by the Scribe were at my direction and personally dictated by me. I have reviewed the chart and agree that the record accurately reflects my personal performance of the history, physical exam, medical decision making, and the department course for this patient. I have also personally directed, reviewed, and agree with the discharge instructions and disposition. Time: 42 -- Spoke to Dr. Morrow, covering for Dr. Baldemar Pantoja, who accepts patient for admission under his service for a diagnosis of dehydration, hypotension and possible sepsis. CT SCAN OF THE ABDOMEN AND PELVIS WITHOUT ORAL OR IV CONTRAST. CLINICAL INDICATION: Urinary retention. TECHNIQUE: Axial and reformatted sagittal and coronal images of the abdomen pelvis obtained without IV contrast administration. COMPARISON: None. FINDINGS: Minimal bilateral basilar atelectatic pulmonary changes. Distended gallbladder. Radiotherapy seeds of the prostate. Mild prostatomegaly. Bilateral renal cysts are noted with the largest measuring 2.5 cm on the right side. Distended bladder. Mild ileus. Surgical changes of the lower aspect of the anterior abdominal wall. Normal unenhanced liver. Normal extrahepatic biliary system. Normal unenhanced spleen. Normal pancreas. Normal bilateral adrenal glands. Normal size of the right kidney. There is no right renal mass. There are no right renal calculi. There is no right hydronephrosis. Normal visualized right ureter. Normal size of the left kidney. There is no left renal mass. There are no left renal calculi. There is no left hydronephrosis. Normal visualized left ureter. Normal visualized stomach. Normal colon. The appendix is visualized and appears normal. There is no demonstrated peritoneal fluid. Calcified atheromatous plaques of the abdominal aorta. Normal inferior vena cava. Normal retroperitoneum. Normal urinary bladder. There is no pelvic mass lesion or lymphadenopathy. There is no pelvic fluid. Moderate diffuse spondylosis. IMPRESSION: Minimal bilateral basilar atelectatic pulmonary changes. Distended gallbladder. Radiotherapy seeds of the prostate. Mild prostatomegaly. Bilateral renal cysts are noted with the largest measuring 2.5 cm on the right side. Distended bladder. Mild ileus. Surgical changes of the lower aspect of the anterior abdominal wall. Electronically signed on December 28, 2018 4:51:12 AM EDT by: Melany Wilson M.D., Certified by YONG, MSK, Neuroradiology Scribe Attestation: Documented by Warren Moralez, acting as a scribe José Antonio Mark MD. Provider Scribe Attestation: All medical record entries made by the Scribe were at my direction and personally dictated by me. I have reviewed the chart and agree that the record accurately reflects my personal performance of the history, physical exam, medical decision making, and the department course for this patient. I have also personally directed, reviewed, and agree with the discharge instructions and disposition. Disposition - Clinical Impression Clinical Impression: Dehydration, Hypotension, Sepsis - Patient ED Disposition Is Patient to be Admitted: Yes - Disposition Disposition Time: 00:43 Condition: FAIR
[2018-12-27 23:02] LABS: ALB/GLOB RATIO 1.2 (1.0-2.1); ALBUMIN 4.5 g/dL (3.5-5.0); ALT/SGPT 31 U/L (21-72); AST/SGOT 34 U/L (17-59); BLOOD UREA NITROGEN 55 mg/dl (9-20); CALCIUM 10.1 mg/dL (8.4-10.2); GFR NON-AFRICAN AMERICAN > 60
[2018-12-27] MEDS ORDERED: Piperacillin/Tazobact 3.375 GM in Sodium Chloride 0.9% 100 ML IVPB STA (23:50)
[2018-12-28] MEDS ORDERED: Piperacillin/Tazobact 3.375 gm Inj IVPB ONE (00:07)
[2018-12-28 01:39] LABS: VENOUS BLOOD GAS BASE EXCESS 7.1 mmol/L (0.0-2.0); VENOUS BLOOD GAS PCO2 56 mmHg (40-60); VENOUS BLOOD GAS PO2 25 mm/Hg (30-55); VENOUS BLOOD PH 7.39 (7.32-7.43)
[2018-12-28 05:06] LABS: URINE BILIRUBIN NEGATIVE (NEGATIVE); URINE BLOOD MODERATE (NEGATIVE); URINE CLARITY SLIGHTY-CLOUDY (Clear); URINE COLOR YELLOW (YELLOW); URINE GLUCOSE (UA) 50 mg/dL (NEGATIVE); URINE HYALINE CAST 0-2 /hpf (0-2); URINE LEUKOCYTE ESTERASE TRACE Leu/uL (Negative); URINE PROTEIN 30 mg/dL (NEGATIVE); URINE UROBILINOGEN 0.2-1.0 mg/dL (0.2-1.0)
[2018-12-28] MEDS ORDERED: Sodium Chloride 0.9% 1,000 ML IV SCH (05:46)
[2018-12-28 06:37] VITALS: BMI 16.7
[2018-12-28] MEDS: Dextrose 5%/Lactated Ringer's 1,000 ML IV SCH (06:40)
[2018-12-28] MEDS: Divalproex 250 mg DR(BID formulation) PO SCH ×2 (08:39→16:34)
[2018-12-28] MEDS: Omega-3-Acid Ethyl Esters 1 GM Cap PO SCH (08:39)
--- NOTE | 2018-12-28 10:19 | RAD ---
Date of service: 12/27/2018 HISTORY: fever COMPARISON: No prior. TECHNIQUE: 1 view obtained. FINDINGS: LUNGS: No active pulmonary disease. PLEURA: No significant pleural effusion identified, no pneumothorax apparent. CARDIOVASCULAR: There is presence of aortic atherosclerotic calcification on x-ray. Mild cardiomegaly no pulmonary vascular congestion. OSSEOUS STRUCTURES: Thoracic spondylosis. Bilateral shoulder arthrosis. VISUALIZED UPPER ABDOMEN: There is gas in a left upper quadrant bowel loop which may be still subdiaphragmatic in mammillated hemidiaphragmatic segment-no lateral view its projection the radiograph could be projectional. Normal limits for developmental variation. OTHER FINDINGS: None. IMPRESSION: No acute pulmonary pathology suspect. Other findings as above.
[2018-12-28 12:08] LABS: HEMOGLOBIN 13.4 g/dL (12.0-18.0); MEAN CELL VOLUME 98.1 fl (80.0-94.0); MEAN CORPUSCULAR HEMOGLOBIN 32.3 pg (27.0-31.0); RBC 4.15 Mil/uL (4.40-5.90); WHITE BLOOD COUNT 11.7 K/uL (4.8-10.8)
[2018-12-28 12:18] LABS: BLOOD UREA NITROGEN 44 mg/dl (9-20); CALCIUM 9.1 mg/dL (8.4-10.2); GFR NON-AFRICAN AMERICAN > 60
--- NOTE | 2018-12-28 13:00 | CT ---
Date of service: 12/28/2018 PROCEDURE: CT Abdomen and Pelvis without intravenous contrast HISTORY: urinaty retention COMPARISON: None. TECHNIQUE: Unenhanced. Neither IV nor oral contrast administered Radiation dose: Total exam DLP = 197.74 mGy-cm. This CT exam was performed using one or more of the following dose reduction techniques: Automated exposure control, adjustment of the mA and/or kV according to patient size, and/or use of iterative reconstruction technique. FINDINGS: LOWER THORAX: Unremarkable. LIVER: Unremarkable. No gross lesion or ductal dilatation. GALLBLADDER AND BILE DUCTS: Distended gallbladder. Gallstones are not visible. PANCREAS: Unremarkable. No gross lesion or ductal dilatation. SPLEEN: Unremarkable. ADRENALS: Unremarkable. No mass. KIDNEYS AND URETERS: Unremarkable. No hydronephrosis. No solid mass. Incidental finding(s): Simple right renal cysts. The largest, exophytic cyst projects off the posterior aspect of the right kidney measures 2.3 x 3.2 cm. VASCULATURE: Atherosclerotic calcification and mural plaque present. Findings are seen throughout the aorta which is non aneurysmal. BOWEL: Unremarkable. No obstruction. No gross mural thickening. APPENDIX: Unremarkable. Normal appendix. PERITONEUM: Unremarkable. No free fluid. No free air. LYMPH NODES: Unremarkable. No enlarged lymph nodes. BLADDER: Distended urinary bladder without focal or diffuse abnormalities REPRODUCTIVE: Unremarkable. BONES: No acute fracture. Multilevel degenerative changes, severe. OTHER FINDINGS: None. IMPRESSION: No significant renal, ureteral or urinary bladder abnormalities. No significant or acute findings to account for/ related to the clinical presentation. Additional benign and/or incidental findings described above. . Concordant results (preliminary interpretation) provided by [facility]. Procedure Completed: 04:09. Preliminary Report: Interpreted and electronically signed: 04:51 Final Interpretation: 12:56.
--- NOTE | 2018-12-28 17:55 | CARD ---
APPROVED REPORT Date of service: 12/27/2018 EKG Measurement Heart [id number] <Conclusion> Sinus tachycardia Nonspecific ST and T wave abnormality Abnormal ECG
[2018-12-28] MEDS ORDERED: Pneumococcal 23-Valent Vaccine IM ONE (21:00)
--- NOTE | 2018-12-28 23:38 | CP.PCM.HP ---
History of Present Illness - History of Present Illness History of Present Illness: This is an 88 y/o male admitted form long-term for failure to thrive and dehydration. He was noted to be hypotensive on initial evaluation. He has dementia CAD, HTN and DM 2. Present on Admission - Present on Admission Any Indicators Present on Admission: No History of DVT/PE: No History of Uncontrolled Diabetes: Yes Urinary Catheter: No Decubitus Ulcer Present: No Review of Systems - Review of Systems Systems not reviewed;Unavailable: Altered Mental Status - Constitutional Constitutional: Anorexia, Daytime Sleepiness, Lethargy (1) - Neurological Neurological: Confusion Past Patient History - Infectious Disease Hx of Infectious Diseases: None - Tetanus Immunizations Tetanus Immunization: Unknown - Past Medical History & Family History Past Medical History?: Yes - Past Social History Smoking Status: Unknown If Ever Smoked - CARDIAC Hx Hypertension: Yes - PULMONARY Hx Respiratory Disorders: No - NEUROLOGICAL Hx Neurological Disorder: Yes Hx Dementia: Yes - HEENT Hx HEENT Problems: No - RENAL Hx Chronic Kidney Disease: No - ENDOCRINE/METABOLIC Hx Endocrine Disorders: Yes Hx Diabetes Mellitus Type 1: Yes - HEMATOLOGICAL/ONCOLOGICAL Hx Blood Disorders: No - INTEGUMENTARY Hx Dermatological Problems: Yes - MUSCULOSKELETAL/RHEUMATOLOGICAL Hx Degenerative Joint Disease: Yes Hx Falls: Yes (as per patient) Hx Gout: Yes - GASTROINTESTINAL Hx Gastrointestinal Disorders: No - GENITOURINARY/GYNECOLOGICAL Hx Genitourinary Disorders: No - PSYCHIATRIC Hx Psychophysiologic Disorder: Yes - SURGICAL HISTORY Hx Surgeries: No - ANESTHESIA Hx Anesthesia: No Meds Allergies/Adverse Reactions: Allergies Allergy/AdvReac Type Severity Reaction Status Date / Time No Known Allergies Allergy Verified 11/11/18 14:27 Physical Exam - Head Exam Head Exam: NORMAL INSPECTION - ENT Exam ENT Exam: Mucous Membranes Dry - Respiratory Exam Respiratory Exam: Decreased Breath Sounds - Cardiovascular Exam Cardiovascular Exam: Tachycardia - GI/Abdominal Exam GI & Abdominal Exam: Normal Bowel Sounds - Neurological Exam Neurological exam: Altered Results - Vital Signs Recent Vital Signs: Last Vital Signs Temp 97.1 F L 12/28/18 16:21 Pulse 79 12/28/18 16:21 Resp 20 12/28/18 16:21 BP 99/61 L 12/28/18 16:21 Pulse Ox 100 12/28/18 16:21 - Labs Result Diagrams: 12/31/18 05:45 12/31/18 05:45 Labs: Laboratory Results - last 24 hr 12/28/18 12/28/18 12/28/18 01:27 05:02 11:45 WBC 11.7 H RBC 4.15 L Hgb 13.4 D Hct 40.7 MCV 98.1 H MCH 32.3 H MCHC 33.0 RDW 15.0 H Plt Count 180 pO2 25 L VBG pH 7.39 VBG pCO2 56 VBG HCO3 29.0 VBG Total CO2 35.6 H VBG O2 Sat (Calc) 38.4 L VBG Base Excess 7.1 H VBG Potassium 3.7 Sodium 153.0 H Chloride 116.0 H Glucose 175 H Lactate 2.6 H FiO2 21.0 Crit Value Called To kat Mark md Crit Value Called By Teresa jackson Crit Value Read Back Y Blood Gas Notified Time 139 Potassium Carbon Dioxide Anion Gap BUN Creatinine Est GFR ( Amer) Est GFR (Non-Af Amer) Random Glucose Calcium Venous Blood Potassium 3.7 Urine Color Yellow Urine Clarity Slighty-cloudy Urine pH 5.0 Ur Specific [place] 1.025 Urine Protein 30 Urine Glucose (UA) 50 Urine Ketones Trace Urine Blood Moderate Urine Nitrate Negative Urine Bilirubin Negative Urine Urobilinogen 0.2-1.0 Ur Leukocyte Esterase Trace Urine RBC (Auto) 24 H Urine Microscopic WBC 11 H Hyaline Casts 0-2 12/28/18 11:45 WBC RBC Hgb Hct MCV MCH MCHC RDW Plt Count pO2 VBG pH VBG pCO2 VBG HCO3 VBG Total CO2 VBG O2 Sat (Calc) VBG Base Excess VBG Potassium Sodium 151 H Chloride 116 H Glucose Lactate FiO2 Crit Value Called To Crit Value Called By Crit Value Read Back Blood Gas Notified Time Potassium 3.4 L Carbon Dioxide 24 Anion Gap 14 BUN 44 H Creatinine 1.1 Est GFR ( Amer) > 60 Est GFR (Non-Af Amer) > 60 Random Glucose 177 H Calcium 9.1 Venous Blood Potassium Urine Color Urine Clarity Urine pH Ur Specific [place] Urine Protein Urine Glucose (UA) Urine Ketones Urine Blood Urine Nitrate Urine Bilirubin Urine Urobilinogen Ur Leukocyte Esterase Urine RBC (Auto) Urine Microscopic WBC Hyaline Casts Assessment & Plan (1) Sepsis Status: Acute (2) Hypotension Status: Acute (3) Dementia with behavioral disturbance Status: Acute (4) CAD (coronary artery disease) Status: Chronic (5) DM2 (diabetes mellitus, type 2) Status: Chronic (6) HTN (hypertension) Status: Chronic - Assessment and Plan (Free Text) Plan: Cont hydration Iv antibiotics caloric count blood and urine C and S.
[2018-12-29 05:59] LABS: HEMOGLOBIN 13.2 g/dL (12.0-18.0); MEAN CELL VOLUME 97.8 fl (80.0-94.0); MEAN CORPUSCULAR HEMOGLOBIN 32.6 pg (27.0-31.0); MEAN CORPUSCULAR HGB CONC 33.3 g/dL (33.0-37.0); RBC 4.05 Mil/uL (4.40-5.90); RED CELL DISTRIBUTION WIDTH 14.8 % (11.5-14.5); WHITE BLOOD COUNT 9.7 K/uL (4.8-10.8)
[2018-12-29 06:31] LABS: ALB/GLOB RATIO 1.2 (1.0-2.1); ALBUMIN 3.5 g/dL (3.5-5.0); ALT/SGPT 33 U/L (21-72); AST/SGOT 25 U/L (17-59); BLOOD UREA NITROGEN 29 mg/dl (9-20); CALCIUM 9.3 mg/dL (8.4-10.2); GFR NON-AFRICAN AMERICAN > 60
[2018-12-29] MEDS: Dextrose 5%/Lactated Ringer's 1,000 ML IV SCH (08:16)
[2018-12-29] MEDS: Divalproex 250 mg DR(BID formulation) PO SCH ×2 (08:21→16:07)
[2018-12-29] MEDS: Omega-3-Acid Ethyl Esters 1 GM Cap PO SCH (08:23)
[2018-12-29] MEDS ORDERED: Potassium Chloride 20 mEq ER Tab PO ONE (11:40)
[2018-12-29] MEDS: Lactated Ringer's 1,000 ML IV SCH (11:58)
[2018-12-30] MEDS: Omega-3-Acid Ethyl Esters 1 GM Cap PO SCH (09:19)
[2018-12-30] MEDS: Divalproex 250 mg DR(BID formulation) PO SCH ×2 (09:20→17:04)
[2018-12-30] MEDS: Lactated Ringer's 1,000 ML IV SCH (09:21)
[2018-12-30 09:54] LABS: BLOOD UREA NITROGEN 20 mg/dl (9-20); CALCIUM 9.2 mg/dL (8.4-10.2); GFR NON-AFRICAN AMERICAN > 60
[2018-12-30] MEDS ORDERED: Potassium Chloride 20 mEq 100 ML IVPB ONE (11:59)
[2018-12-30] MEDS ORDERED: Sodium Chloride 0.45% 1,000 ML IV SCH (12:00)
[2018-12-30] MEDS: Potassium Chloride 40 MEQ in Sodium Chloride 0.45% 1,000 ML IV SCH (13:39)
[2018-12-31] MEDS: Potassium Chloride 40 MEQ in Sodium Chloride 0.45% 1,000 ML IV SCH ×2 (03:05→03:06)
[2018-12-31 07:09] LABS: HEMOGLOBIN 12.8 g/dL (12.0-18.0); MEAN CELL VOLUME 95.8 fl (80.0-94.0); MEAN CORPUSCULAR HEMOGLOBIN 32.4 pg (27.0-31.0); MEAN CORPUSCULAR HGB CONC 33.8 g/dL (33.0-37.0); RBC 3.95 Mil/uL (4.40-5.90); RED CELL DISTRIBUTION WIDTH 15.2 % (11.5-14.5); WHITE BLOOD COUNT 6.7 K/uL (4.8-10.8)
[2018-12-31 07:33] LABS: ALB/GLOB RATIO 1.1 (1.0-2.1); ALBUMIN 3.4 g/dL (3.5-5.0); ALT/SGPT 26 U/L (21-72); AST/SGOT 27 U/L (17-59); BLOOD UREA NITROGEN 17 mg/dl (9-20); CALCIUM 9.2 mg/dL (8.4-10.2); GFR NON-AFRICAN AMERICAN > 60
[2018-12-31] MEDS: Divalproex 250 mg DR(BID formulation) PO SCH ×2 (09:40→18:10)
[2018-12-31] MEDS: Omega-3-Acid Ethyl Esters 1 GM Cap PO SCH ×2 (09:41→10:05)
[2019-01-01] MEDS: Divalproex 250 mg DR(BID formulation) PO SCH ×2 (10:47→16:35)
[2019-01-01] MEDS: Omega-3-Acid Ethyl Esters 1 GM Cap PO SCH (10:52)
[2019-01-01] MEDS: Dextrose 5%/Lactated Ringer's 1,000 ML IV SCH (13:04)
[2019-01-02] MEDS: Dextrose 5%/Lactated Ringer's 1,000 ML IV SCH (01:12)
[2019-01-02] MEDS: Divalproex 250 mg DR(BID formulation) PO SCH ×2 (09:08→17:39)
[2019-01-02] MEDS: Omega-3-Acid Ethyl Esters 1 GM Cap PO SCH (09:09)
--- NOTE | 2019-01-03 08:40 | PN ---
REFERRING PHYSICIAN: Michel Morrow MD HISTORY OF PRESENT ILLNESS: An 88-year-old gentleman who was referred for possible PEG insertion as he has had essentially no p.o. intake over the last three days. I spoke with the nurse who says he is eating very, very little. When he does eat, he is able to swallow. There is no apparent dysphagia, but his intake has been minimal, and he is referred for possible PEG. All history is from the chart and my discussion with the nurse as the patient is unable to give any formal history. ALLERGIES: HE HAS NO KNOWN DRUG ALLERGIES. MEDICATIONS: He is on Aricept, Cozaar, Depakote, subcu heparin, Lipitor, omega-3 supplementation, and he is on Megace as well as Seroquel. PAST MEDICAL HISTORY: Dementia, hyperlipidemia, poor appetite. PAST SURGICAL HISTORY: Noncontributory. FAMILY HISTORY: Noncontributory. SOCIAL HISTORY: No known history of alcohol, tobacco, or drug use. PHYSICAL EXAMINATION: GENERAL: A well-developed, well-nourished, elderly, frail-appearing gentleman who is alert and oriented to self, but unable to give any good history. VITAL SIGNS: Stable. He is afebrile. ABDOMEN: Soft and flat with positive bowel sounds. Nontender and nondistended. No hepatosplenomegaly is appreciated. LABORATORY DATA: CBC most recent two days ago was essentially unremarkable. SMA-7: Sodium is elevated at 150 with a chloride of 117. BUN and creatinine are normal. LFTs were normal. IMPRESSION AND PLAN: An 88-year-old gentleman with very poor oral intake and more than likely will need a percutaneous endoscopic gastrostomy tube insertion; however, there is no family available at the bedside at the moment to discuss with them. We will try to track down his to discuss the risks and benefits of percutaneous endoscopic gastrostomy and if she is agreeable, we will schedule and provide tomorrow the next day and will follow along with him. In the meantime, continue with his present care. Jassi Frazier MD
[2019-01-03] MEDS: Omega-3-Acid Ethyl Esters 1 GM Cap PO SCH (09:31)
[2019-01-03] MEDS: Divalproex 250 mg DR(BID formulation) PO SCH ×2 (09:31→18:13)
--- NOTE | 2019-01-03 09:51 | CP.PCM.PN ---
Subjective - Date & Time of Evaluation Date of Evaluation: 12/29/18 Time of Evaluation: 11:00 - Subjective Subjective: Patient remains lethargic. Has no fever. Has very poor intake. Objective - Vital Signs/Intake and Output Vital Signs (last 24 hours): Temp Pulse Resp BP Pulse Ox 97.3 F L 61 20 144/58 L 95 01/03/19 08:09 01/03/19 09:31 01/03/19 08:09 01/03/19 09:31 01/03/19 08:09 - Medications Medications: Current Medications Atorvastatin Calcium (Lipitor) 40 mg PO DAILY [facility] Last Admin: 01/03/19 09:31 Dose: 40 mg Divalproex Sodium (Depakote Dr(*Bid*)) 250 mg PO BID [facility] Last Admin: 01/03/19 09:31 Dose: 250 mg Donepezil HCl (Aricept) 10 mg PO [facility] Last Admin: 01/02/19 22:02 Dose: 10 mg Losartan Potassium (Cozaar) 25 mg PO DAILY [facility] Last Admin: 01/03/19 09:31 Dose: 25 mg Megestrol Acetate (Megace) 20 mg PO DAILY [facility] Last Admin: 01/03/19 09:31 Dose: 20 mg Ruwiz-8-Lhta Ethyl Esters (Lovaza) 2 gm PO DAILY [facility] Last Admin: 01/03/19 09:31 Dose: 2 gm Quetiapine Fumarate (Seroquel) 200 mg PO [facility] Last Admin: 01/02/19 22:02 Dose: 200 mg - Labs Labs: 12/31/18 05:45 12/31/18 05:45 - Head Exam Head Exam: NORMAL INSPECTION - Eye Exam Eye Exam: Normal appearance - ENT Exam ENT Exam: Mucous Membranes Moist - Respiratory Exam Respiratory Exam: Decreased Breath Sounds - Cardiovascular Exam Cardiovascular Exam: REGULAR RHYTHM - GI/Abdominal Exam GI & Abdominal Exam: Normal Bowel Sounds - Neurological Exam Neurological Exam: Altered Assessment and Plan (1) Hypotension Status: Acute (2) Dementia with behavioral disturbance Status: Acute (3) CAD (coronary artery disease) Status: Chronic (4) DM2 (diabetes mellitus, type 2) Status: Chronic (5) HTN (hypertension) Status: Chronic (6) Failure to thrive in adult Status: Acute (7) Dehydration Status: Acute (8) Hypokalemia Status: Acute - Assessment and Plan (Free Text) Plan: Hydration check labs' C and S blood and urine one to one check cbc cmp replace potassium
--- NOTE | 2019-01-03 09:55 | CP.PCM.PN ---
Subjective - Date & Time of Evaluation Date of Evaluation: 12/30/18 Time of Evaluation: 11:00 - Subjective Subjective: Patient remains very confused Has very poor intake Has no fever. sodium remains elevated Noted low potassium. Objective - Vital Signs/Intake and Output Vital Signs (last 24 hours): Temp Pulse Resp BP Pulse Ox 97.3 F L 61 20 144/58 L 95 01/03/19 08:09 01/03/19 09:31 01/03/19 08:09 01/03/19 09:31 01/03/19 08:09 - Medications Medications: Current Medications Atorvastatin Calcium (Lipitor) 40 mg PO DAILY [facility] Last Admin: 01/03/19 09:31 Dose: 40 mg Divalproex Sodium (Depakote Dr(*Bid*)) 250 mg PO BID [facility] Last Admin: 01/03/19 09:31 Dose: 250 mg Donepezil HCl (Aricept) 10 mg PO [facility] Last Admin: 01/02/19 22:02 Dose: 10 mg Losartan Potassium (Cozaar) 25 mg PO DAILY [facility] Last Admin: 01/03/19 09:31 Dose: 25 mg Megestrol Acetate (Megace) 20 mg PO DAILY [facility] Last Admin: 01/03/19 09:31 Dose: 20 mg Jlqtw-5-Grvm Ethyl Esters (Lovaza) 2 gm PO DAILY [facility] Last Admin: 01/03/19 09:31 Dose: 2 gm Quetiapine Fumarate (Seroquel) 200 mg PO HS [facility] Last Admin: 01/02/19 22:02 Dose: 200 mg - Labs Labs: 12/31/18 05:45 12/31/18 05:45 - Constitutional Appears: Confused - ENT Exam ENT Exam: Mucous Membranes Dry - Respiratory Exam Respiratory Exam: Decreased Breath Sounds - Cardiovascular Exam Cardiovascular Exam: REGULAR RHYTHM - GI/Abdominal Exam GI & Abdominal Exam: Normal Bowel Sounds Assessment and Plan (1) Hypotension Status: Acute (2) Dementia with behavioral disturbance Status: Acute (3) CAD (coronary artery disease) Status: Chronic (4) DM2 (diabetes mellitus, type 2) Status: Chronic (5) HTN (hypertension) Status: Chronic (6) Failure to thrive in adult Status: Acute (7) Dehydration Status: Acute (8) Hypokalemia Status: Acute - Assessment and Plan (Free Text) Plan: Cont meds Cont tx Cont hydration Cont check labs
--- NOTE | 2019-01-03 09:56 | CP.PCM.PCO ---
Assessment & Plan - Assessment and Plan (Free Text) Assessment: pt. cont. with poor appetite, cont. calorie count patient's Celena contacted and advanced directive/ PEG tube for nutrition discussed with her, at this time, pt. wished to cont. will full code status and will notify provider after d/w family regarding peg insertion
--- NOTE | 2019-01-03 09:58 | CP.PCM.PN ---
Subjective - Date & Time of Evaluation Date of Evaluation: 12/31/18 Time of Evaluation: 12:00 - Subjective Subjective: Patient continues to have very poor intake Has no fever. Sodium is 150. Objective - Vital Signs/Intake and Output Vital Signs (last 24 hours): Temp Pulse Resp BP Pulse Ox 97.3 F L 61 20 144/58 L 95 01/03/19 08:09 01/03/19 09:31 01/03/19 08:09 01/03/19 09:31 01/03/19 08:09 - Medications Medications: Current Medications Atorvastatin Calcium (Lipitor) 40 mg PO DAILY [facility] Last Admin: 01/03/19 09:31 Dose: 40 mg Divalproex Sodium (Depakote Dr(*Bid*)) 250 mg PO BID [facility] Last Admin: 01/03/19 09:31 Dose: 250 mg Donepezil HCl (Aricept) 10 mg PO [facility] Last Admin: 01/02/19 22:02 Dose: 10 mg Losartan Potassium (Cozaar) 25 mg PO DAILY [facility] Last Admin: 01/03/19 09:31 Dose: 25 mg Megestrol Acetate (Megace) 20 mg PO DAILY [facility] Last Admin: 01/03/19 09:31 Dose: 20 mg Ddjnt-3-Lkwj Ethyl Esters (Lovaza) 2 gm PO DAILY [facility] Last Admin: 01/03/19 09:31 Dose: 2 gm Quetiapine Fumarate (Seroquel) 200 mg PO HS [facility] Last Admin: 01/02/19 22:02 Dose: 200 mg - Labs Labs: 12/31/18 05:45 12/31/18 05:45 - Constitutional Appears: Confused, Cachectic - Head Exam Head Exam: NORMAL INSPECTION - ENT Exam ENT Exam: Mucous Membranes Dry - Respiratory Exam Respiratory Exam: Clear to Ausculation Bilateral - Cardiovascular Exam Cardiovascular Exam: REGULAR RHYTHM - GI/Abdominal Exam GI & Abdominal Exam: Normal Bowel Sounds Assessment and Plan (1) Hypotension Status: Acute (2) Dementia with behavioral disturbance Status: Acute (3) CAD (coronary artery disease) Status: Chronic (4) DM2 (diabetes mellitus, type 2) Status: Chronic (5) HTN (hypertension) Status: Chronic (6) Failure to thrive in adult Status: Acute (7) Dehydration Status: Acute (8) Hypokalemia Status: Acute - Assessment and Plan (Free Text) Plan: Cont hydration Ensure caloric count GI eval for possible PEg placement if ok with family or guardian.
--- NOTE | 2019-01-03 10:00 | CP.PCM.PN ---
Subjective - Date & Time of Evaluation Date of Evaluation: 01/01/19 Time of Evaluation: 11:00 - Subjective Subjective: Patient remains lethargic and confused. Has very poor intake Objective - Vital Signs/Intake and Output Vital Signs (last 24 hours): Temp Pulse Resp BP Pulse Ox 97.3 F L 61 20 144/58 L 95 01/03/19 08:09 01/03/19 09:31 01/03/19 08:09 01/03/19 09:31 01/03/19 08:09 - Medications Medications: Current Medications Atorvastatin Calcium (Lipitor) 40 mg PO DAILY [facility] Last Admin: 01/03/19 09:31 Dose: 40 mg Divalproex Sodium (Depakote Dr(*Bid*)) 250 mg PO BID [facility] Last Admin: 01/03/19 09:31 Dose: 250 mg Donepezil HCl (Aricept) 10 mg PO [facility] Last Admin: 01/02/19 22:02 Dose: 10 mg Losartan Potassium (Cozaar) 25 mg PO DAILY [facility] Last Admin: 01/03/19 09:31 Dose: 25 mg Megestrol Acetate (Megace) 20 mg PO DAILY [facility] Last Admin: 01/03/19 09:31 Dose: 20 mg Vmwyj-3-Dndw Ethyl Esters (Lovaza) 2 gm PO DAILY [facility] Last Admin: 01/03/19 09:31 Dose: 2 gm Quetiapine Fumarate (Seroquel) 200 mg PO HS [facility] Last Admin: 01/02/19 22:02 Dose: 200 mg - Labs Labs: 12/31/18 05:45 12/31/18 05:45 - Head Exam Head Exam: NORMAL INSPECTION - ENT Exam ENT Exam: Mucous Membranes Moist - Respiratory Exam Respiratory Exam: Decreased Breath Sounds - Cardiovascular Exam Cardiovascular Exam: REGULAR RHYTHM - GI/Abdominal Exam GI & Abdominal Exam: Normal Bowel Sounds - Neurological Exam Neurological Exam: Altered Assessment and Plan (1) Hypotension Status: Acute (2) Dementia with behavioral disturbance Status: Acute (3) CAD (coronary artery disease) Status: Chronic (4) DM2 (diabetes mellitus, type 2) Status: Chronic (5) HTN (hypertension) Status: Chronic (6) Failure to thrive in adult Status: Acute (7) Dehydration Status: Acute (8) Hypokalemia Status: Acute - Assessment and Plan (Free Text) Plan: Cont hydration caloric count ensure follow up GI for PEG insertion
--- NOTE | 2019-01-03 10:01 | CP.PCM.PN ---
Subjective - Date & Time of Evaluation Date of Evaluation: 01/02/19 Time of Evaluation: 11:00 - Subjective Subjective: Patient continues to have very poor intake Has no fever. Oral hypoglycemics were discontinued due to poor intake. Objective - Vital Signs/Intake and Output Vital Signs (last 24 hours): Temp Pulse Resp BP Pulse Ox 97.3 F L 61 20 144/58 L 95 01/03/19 08:09 01/03/19 09:31 01/03/19 08:09 01/03/19 09:31 01/03/19 08:09 - Medications Medications: Current Medications Atorvastatin Calcium (Lipitor) 40 mg PO DAILY [facility] Last Admin: 01/03/19 09:31 Dose: 40 mg Divalproex Sodium (Depakote Dr(*Bid*)) 250 mg PO BID [facility] Last Admin: 01/03/19 09:31 Dose: 250 mg Donepezil HCl (Aricept) 10 mg PO [facility] Last Admin: 01/02/19 22:02 Dose: 10 mg Losartan Potassium (Cozaar) 25 mg PO DAILY [facility] Last Admin: 01/03/19 09:31 Dose: 25 mg Megestrol Acetate (Megace) 20 mg PO DAILY [facility] Last Admin: 01/03/19 09:31 Dose: 20 mg Mcgag-4-Yuhn Ethyl Esters (Lovaza) 2 gm PO DAILY [facility] Last Admin: 01/03/19 09:31 Dose: 2 gm Quetiapine Fumarate (Seroquel) 200 mg PO HS [facility] Last Admin: 01/02/19 22:02 Dose: 200 mg - Labs Labs: 12/31/18 05:45 12/31/18 05:45 - Head Exam Head Exam: NORMAL INSPECTION - ENT Exam ENT Exam: Mucous Membranes Dry - Respiratory Exam Respiratory Exam: Decreased Breath Sounds - Cardiovascular Exam Cardiovascular Exam: REGULAR RHYTHM - GI/Abdominal Exam GI & Abdominal Exam: Normal Bowel Sounds - Neurological Exam Neurological Exam: Altered Assessment and Plan (1) Hypotension Status: Acute (2) Dementia with behavioral disturbance Status: Acute (3) CAD (coronary artery disease) Status: Chronic (4) DM2 (diabetes mellitus, type 2) Status: Chronic (5) HTN (hypertension) Status: Chronic (6) Failure to thrive in adult Status: Acute (7) Dehydration Status: Acute (8) Hypokalemia Status: Acute - Assessment and Plan (Free Text) Plan: Cont med Cont hydration check labs follow up with GI
--- NOTE | 2019-01-03 12:06 | CP.PCM.CON ---
History of Present Illness - History of Present Illness History of Present Illness: Psychiatry consult CC: Dementia HPI: 88 yo male w/ h/o dementia, admitted w/ hypotension and poor PO intake. Patient unable to engage appropriately in interview at this time because he is falling asleep. 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 PPHx: H/o inpatient psychiatric treatment at [facility]; recent to [facility] PMHx: HTN, DM, CAD, HLD, gout ALL: NDKA SHx: Resident at jail; no current drug/etoh use Impression: 88 yo male w/ h/o dementia, no current acute behavioral disturbances. -Recommend to continue Depakote, Aricept and Seroquel -Recommend to check VPA level -No acute psychiatric admission indicated at this time Past Patient History - Infectious Disease Hx of Infectious Diseases: None - Tetanus Immunizations Tetanus Immunization: Unknown - Past Medical History & Family History Past Medical History?: Yes - Past Social History Smoking Status: Unknown If Ever Smoked - CARDIAC Hx Hypertension: Yes - PULMONARY Hx Respiratory Disorders: No - NEUROLOGICAL Hx Neurological Disorder: Yes Hx Dementia: Yes - HEENT Hx HEENT Problems: No - RENAL Hx Chronic Kidney Disease: No - ENDOCRINE/METABOLIC Hx Endocrine Disorders: Yes Hx Diabetes Mellitus Type 1: Yes - HEMATOLOGICAL/ONCOLOGICAL Hx Blood Disorders: No - INTEGUMENTARY Hx Dermatological Problems: Yes - MUSCULOSKELETAL/RHEUMATOLOGICAL Hx Degenerative Joint Disease: Yes Hx Falls: Yes (as per patient) Hx Gout: Yes - GASTROINTESTINAL Hx Gastrointestinal Disorders: No - GENITOURINARY/GYNECOLOGICAL Hx Genitourinary Disorders: No - PSYCHIATRIC Hx Psychophysiologic Disorder: Yes - SURGICAL HISTORY Hx Surgeries: No - ANESTHESIA Hx Anesthesia: No Meds Allergies/Adverse Reactions: Allergies Allergy/AdvReac Type Severity Reaction Status Date / Time No Known Allergies Allergy Verified 11/11/18 14:27 - Medications Medications: Current Medications Atorvastatin Calcium (Lipitor) 40 mg PO DAILY [facility] Last Admin: 01/03/19 09:31 Dose: 40 mg Divalproex Sodium (Depakote Dr(*Bid*)) 250 mg PO BID [facility] Last Admin: 01/03/19 09:31 Dose: 250 mg Donepezil HCl (Aricept) 10 mg PO HS [facility] Last Admin: 01/02/19 22:02 Dose: 10 mg Losartan Potassium (Cozaar) 25 mg PO DAILY [facility] Last Admin: 01/03/19 09:31 Dose: 25 mg Megestrol Acetate (Megace) 20 mg PO DAILY [facility] Last Admin: 01/03/19 09:31 Dose: 20 mg Pxplq-2-Ockd Ethyl Esters (Lovaza) 2 gm PO DAILY [facility] Last Admin: 01/03/19 09:31 Dose: 2 gm Quetiapine Fumarate (Seroquel) 200 mg PO [facility] Last Admin: 01/02/19 22:02 Dose: 200 mg Results - Vital Signs Recent Vital Signs: Last Vital Signs Temp 97.3 F L 01/03/19 08:09 Pulse 61 01/03/19 09:31 Resp 20 01/03/19 08:09 BP 144/58 L 01/03/19 09:31 Pulse Ox 95 01/03/19 08:09 - Labs Result Diagrams: 12/31/18 05:45 12/31/18 05:45 Labs: Laboratory Results - last 24 hr 01/02/19 01/02/19 11:01 15:35 POC Glucose (mg/dL) 195 H 140 H
--- NOTE | 2019-01-03 13:00 | CT ---
Date of service: 01/03/2019 PROCEDURE: CT HEAD WITHOUT CONTRAST. HISTORY: Dehydration, sepsis and altered mental status. COMPARISON: None available. TECHNIQUE: Axial computed tomography images were obtained through the head/brain without intravenous contrast. Supplemental Coronal and Sagittal projections created and reviewed. Radiation dose: Total exam DLP = 1942.69 mGy-cm. This CT exam was performed using one or more of the following dose reduction techniques: Automated exposure control, adjustment of the mA and/or kV according to patient size, and/or use of iterative reconstruction technique. FINDINGS: HEMORRHAGE: No intracranial hemorrhage. BRAIN: No mass effect or edema. Cortical and cerebellar atrophy, periventricular small vessel disease. VENTRICLES: Unremarkable. No hydrocephalus. CALVARIUM: Unremarkable. PARANASAL SINUSES: Unremarkable as visualized. No significant inflammatory changes. MASTOID AIR CELLS: Unremarkable as visualized. No inflammatory changes. OTHER FINDINGS: None. IMPRESSION: No acute intracranial abnormalities. No significant findings to account for the clinical presentation.
[2019-01-03 13:21] LABS: HEMOGLOBIN 11.8 g/dL (12.0-18.0); MEAN CELL VOLUME 94.5 fl (80.0-94.0); MEAN CORPUSCULAR HEMOGLOBIN 32.4 pg (27.0-31.0); MEAN CORPUSCULAR HGB CONC 34.3 g/dL (33.0-37.0); RBC 3.65 Mil/uL (4.40-5.90); RED CELL DISTRIBUTION WIDTH 14.7 % (11.5-14.5)
[2019-01-03 13:53] LABS: BLOOD UREA NITROGEN 7 mg/dl (9-20); CALCIUM 8.5 mg/dL (8.4-10.2); GFR NON-AFRICAN AMERICAN > 60
[2019-01-03 23:43] VITALS: RESP 20
--- NOTE | 2019-01-04 07:17 | CP.PCM.PN ---
Subjective - Date & Time of Evaluation Date of Evaluation: 01/03/19 Time of Evaluation: 12:35 - Subjective Subjective: Patient remains stable. No fever. Still with very poor or no intake at all. Objective - Vital Signs/Intake and Output Vital Signs (last 24 hours): Temp Pulse Resp BP Pulse Ox 97.6 F 79 20 102/56 L 96 01/03/19 23:43 01/03/19 23:43 01/03/19 23:43 01/03/19 23:43 01/03/19 23:43 - Medications Medications: Current Medications Atorvastatin Calcium (Lipitor) 40 mg PO DAILY [facility] Last Admin: 01/03/19 09:31 Dose: 40 mg Divalproex Sodium (Depakote Dr(*Bid*)) 250 mg PO BID [facility] Last Admin: 01/03/19 18:13 Dose: 250 mg Donepezil HCl (Aricept) 10 mg PO HS [facility] Last Admin: 01/03/19 21:56 Dose: 10 mg Heparin Sodium (Porcine) (Heparin) 5,000 units SC Q12 [facility]; Protocol Last Admin: 01/03/19 21:53 Dose: 5,000 units Losartan Potassium (Cozaar) 25 mg PO DAILY [facility] Last Admin: 01/03/19 09:31 Dose: 25 mg Megestrol Acetate (Megace) 20 mg PO DAILY [facility] Last Admin: 01/03/19 09:31 Dose: 20 mg Petlh-1-Fmuy Ethyl Esters (Lovaza) 2 gm PO DAILY [facility] Last Admin: 01/03/19 09:31 Dose: 2 gm Quetiapine Fumarate (Seroquel) 200 mg PO [facility] Last Admin: 01/03/19 21:56 Dose: 200 mg - Labs Labs: 01/03/19 13:15 01/03/19 13:15 - Head Exam Head Exam: NORMAL INSPECTION - Eye Exam Eye Exam: Normal appearance - ENT Exam ENT Exam: Mucous Membranes Moist - Respiratory Exam Respiratory Exam: Clear to Ausculation Bilateral - Cardiovascular Exam Cardiovascular Exam: REGULAR RHYTHM - GI/Abdominal Exam GI & Abdominal Exam: Normal Bowel Sounds - Neurological Exam Neurological Exam: Awake, Oriented x3 Assessment and Plan (1) Hypotension Status: Acute (2) Dementia with behavioral disturbance Status: Acute (3) CAD (coronary artery disease) Status: Chronic (4) DM2 (diabetes mellitus, type 2) Status: Chronic (5) HTN (hypertension) Status: Chronic (6) Failure to thrive in adult Status: Acute (7) Dehydration Status: Acute (8) Hypokalemia Status: Acute - Assessment and Plan (Free Text) Plan: Cont meds Con tx follow up with GI patient needs a PEG cont hydration
[2019-01-04] MEDS: Divalproex 250 mg DR(BID formulation) PO SCH ×2 (09:33→16:31)
[2019-01-04] MEDS: Omega-3-Acid Ethyl Esters 1 GM Cap PO SCH (09:33)
[2019-01-04] MEDS ORDERED: Potassium Chloride 20 mEq/15 ml LIQ UD PO ONE (10:04)
[2019-01-05 08:13] LABS: HEMOGLOBIN 11.3 g/dL (12.0-18.0); MEAN CELL VOLUME 94.6 fl (80.0-94.0); MEAN CORPUSCULAR HEMOGLOBIN 32.7 pg (27.0-31.0); MEAN CORPUSCULAR HGB CONC 34.6 g/dL (33.0-37.0); RBC 3.44 Mil/uL (4.40-5.90); RED CELL DISTRIBUTION WIDTH 14.3 % (11.5-14.5); WHITE BLOOD COUNT 4.7 K/uL (4.8-10.8)
[2019-01-05 08:22] LABS: BLOOD UREA NITROGEN 4 mg/dl (9-20); CALCIUM 8.3 mg/dL (8.4-10.2); GFR NON-AFRICAN AMERICAN > 60
[2019-01-05] MEDS: Dextrose 5%/0.45% NS 1,000 ML IV SCH (09:23)
--- NOTE | 2019-01-05 10:14 | CP.PCM.PN ---
Subjective - Date & Time of Evaluation Date of Evaluation: 01/04/19 Time of Evaluation: 16:00 - Subjective Subjective: no overnight events Objective - Vital Signs/Intake and Output Vital Signs (last 24 hours): Temp Pulse Resp BP Pulse Ox 97.4 F L 68 20 132/74 98 01/05/19 07:57 01/05/19 07:57 01/05/19 07:57 01/05/19 07:57 01/05/19 07:57 - Medications Medications: Current Medications Atorvastatin Calcium (Lipitor) 40 mg PO DAILY [facility] Last Admin: 01/04/19 09:34 Dose: 40 mg Divalproex Sodium (Depakote Dr(*Bid*)) 250 mg PO BID [facility] Last Admin: 01/04/19 16:31 Dose: 250 mg Donepezil HCl (Aricept) 10 mg PO HS [facility] Last Admin: 01/04/19 21:06 Dose: 10 mg Heparin Sodium (Porcine) (Heparin) 5,000 units SC Q12 [facility]; Protocol Last Admin: 01/04/19 21:06 Dose: 5,000 units Potassium Chloride (Potassium Chloride 20 Meq/100 Ml) 100 mls @ 50 mls/hr IVPB Q2 [facility] Stop: 01/05/19 13:59 Dextrose/Sodium Chloride (Dextrose 5%/0.45% Ns 1000 Ml) 1,000 mls @ 60 mls/hr IV .[id number] [facility] Stop: 01/06/19 08:49 Last Admin: 01/05/19 09:23 Dose: 60 mls/hr Losartan Potassium (Cozaar) 25 mg PO DAILY [facility] Last Admin: 01/04/19 09:33 Dose: 25 mg Megestrol Acetate (Megace) 20 mg PO DAILY [facility] Last Admin: 01/04/19 09:34 Dose: 20 mg Xdaoo-7-Mrgr Ethyl Esters (Lovaza) 2 gm PO DAILY [facility] Last Admin: 01/04/19 09:33 Dose: 2 gm Quetiapine Fumarate (Seroquel) 200 mg PO HS [facility] Last Admin: 01/04/19 21:06 Dose: 200 mg - Labs Labs: 01/05/19 07:30 01/05/19 07:30 - Neck Exam Neck Exam: Normal Inspection - Cardiovascular Exam Cardiovascular Exam: REGULAR RHYTHM - GI/Abdominal Exam GI & Abdominal Exam: Soft, Normal Bowel Sounds Assessment and Plan - Assessment and Plan (Free Text) Assessment: 88 yo male with dysphagia awaiting son's decision re: peg
[2019-01-05] MEDS: Potassium Chloride 20 mEq 100 ML IVPB SCH ×2 (10:37→16:04)
[2019-01-05] MEDS: Omega-3-Acid Ethyl Esters 1 GM Cap PO SCH ×2 (10:53→12:06)
[2019-01-05] MEDS: Divalproex 250 mg DR(BID formulation) PO SCH ×2 (10:53→16:07)
--- NOTE | 2019-01-05 18:40 | CP.PCM.PN ---
Subjective - Date & Time of Evaluation Date of Evaluation: 01/05/19 Time of Evaluation: 10:00 - Subjective Subjective: patient seen and examined at bedside. Interim events noted No complaints offered at this time denies cp/sob/fever/chills. available diagnostic data reviewed Review of Systems All systems: reviewed and no additional remarkable complaints except mentioned above Objective Vital Signs Stable - Constitutional Appears: Non-toxic, No Acute Distress Head Exam: NORMAL INSPECTION Eye Exam: Normal appearance Respiratory Exam: NORMAL BREATHING PATTERN Cardiovascular Exam: +S1, +S2 GI & Abdominal Exam: Soft Neurological Exam: Alert, Awake Psychiatric exam: Normal Affect, Normal Mood Skin Exam: Normal Color, Warm Assessment and Plan monitor vitals monitor labs Cont meds Cont tx consultants appreciated input pending possible peg placement rest of plan as ordered Objective - Vital Signs/Intake and Output Vital Signs (last 24 hours): Temp Pulse Resp BP Pulse Ox 97.8 F 70 20 155/75 H 99 01/05/19 17:00 01/05/19 17:00 01/05/19 17:00 01/05/19 17:00 01/05/19 17:00 - Medications Medications: Current Medications Atorvastatin Calcium (Lipitor) 40 mg PO DAILY [facility] Last Admin: 01/05/19 10:53 Dose: 40 mg Divalproex Sodium (Depakote Dr(*Bid*)) 250 mg PO BID [facility] Last Admin: 01/05/19 16:07 Dose: 250 mg Donepezil HCl (Aricept) 10 mg PO HS [facility] Last Admin: 01/04/19 21:06 Dose: 10 mg Heparin Sodium (Porcine) (Heparin) 5,000 units SC Q12 [facility]; Protocol Last Admin: 01/05/19 10:54 Dose: 5,000 units Dextrose/Sodium Chloride (Dextrose 5%/0.45% Ns 1000 Ml) 1,000 mls @ 60 mls/hr IV .[id number] [facility] Stop: 01/06/19 08:49 Last Admin: 01/05/19 09:23 Dose: 60 mls/hr Losartan Potassium (Cozaar) 25 mg PO DAILY [facility] Last Admin: 01/05/19 10:53 Dose: 25 mg Megestrol Acetate (Megace) 20 mg PO DAILY [facility] Last Admin: 01/05/19 10:53 Dose: 20 mg Tayae-9-Huwy Ethyl Esters (Lovaza) 2 gm PO DAILY [facility] Last Admin: 01/05/19 12:06 Dose: Not Given Quetiapine Fumarate (Seroquel) 200 mg PO [facility] Last Admin: 01/04/19 21:06 Dose: 200 mg - Labs Labs: 01/05/19 07:30 01/05/19 07:30
--- NOTE | 2019-01-05 23:32 | CP.PCM.PN ---
Subjective - Date & Time of Evaluation Date of Evaluation: 01/04/19 Time of Evaluation: 10:00 - Subjective Subjective: Pt seen and assessed at bedside. For possible PEG tube placement; poor oral intake noted. GI and psych on consult. Subjective Review of Systems: Reviewed and no additional remarkable complaints except poor oral intake. Objective Appears: Weak, frail appearance. Head Exam: NORMAL INSPECTION, normocephalic. Eye Exam: Normal eye inspection, EOMI, PERRLA. Respiratory Exam: NORMAL BREATHING PATTERN, breath sounds clear bilaterally. Cardiovascular Exam: +S1, +S2. RRR. GI & Abdominal Exam: Non-tender, Non-distended, bowel sounds present in all 4 quadrants. Neurological Exam: Alert, awake, periods of behavioral disturbance noted. Psychiatric exam: Normal mood. Calm and cooperative. Skin exam: Pale, warm, dry. Assessment/Impression/Plan: 1.) Dehydration, dysphagia, poor intake -Pt for possible PEG tube; awaiting consent. -Dehydration resolved. -GI and psychiatry consults input appreciated. -Continue current treatment. Objective - Vital Signs/Intake and Output Vital Signs (last 24 hours): Temp Pulse Resp BP Pulse Ox 97.8 F 70 20 155/75 H 99 01/05/19 17:00 01/05/19 17:00 01/05/19 17:00 01/05/19 17:00 01/05/19 17:00 - Medications Medications: Current Medications Atorvastatin Calcium (Lipitor) 40 mg PO DAILY [facility] Last Admin: 01/05/19 10:53 Dose: 40 mg Divalproex Sodium (Depakote Dr(*Bid*)) 250 mg PO BID [facility] Last Admin: 01/05/19 16:07 Dose: 250 mg Donepezil HCl (Aricept) 10 mg PO HS [facility] Last Admin: 01/05/19 21:22 Dose: 10 mg Heparin Sodium (Porcine) (Heparin) 5,000 units SC Q12 [facility]; Protocol Last Admin: 01/05/19 21:19 Dose: 5,000 units Dextrose/Sodium Chloride (Dextrose 5%/0.45% Ns 1000 Ml) 1,000 mls @ 60 mls/hr IV .[id number] [facility] Stop: 01/06/19 08:49 Last Admin: 01/05/19 09:23 Dose: 60 mls/hr Losartan Potassium (Cozaar) 25 mg PO DAILY [facility] Last Admin: 01/05/19 10:53 Dose: 25 mg Megestrol Acetate (Megace) 20 mg PO DAILY [facility] Last Admin: 01/05/19 10:53 Dose: 20 mg Nnopp-4-Tzpm Ethyl Esters (Lovaza) 2 gm PO DAILY [facility] Last Admin: 01/05/19 12:06 Dose: Not Given Quetiapine Fumarate (Seroquel) 200 mg PO [facility] Last Admin: 01/05/19 21:22 Dose: 200 mg - Labs Labs: 01/05/19 07:30 01/05/19 07:30 Assessment and Plan (1) Dehydration Status: Acute (2) Failure to thrive in adult Status: Acute
[2019-01-06] MEDS: Divalproex 250 mg DR(BID formulation) PO SCH (10:36)
[2019-01-06] MEDS: Omega-3-Acid Ethyl Esters 1 GM Cap PO SCH (10:37)
[2019-01-06 12:22] LABS: BLOOD UREA NITROGEN 4 mg/dl (9-20); CALCIUM 8.3 mg/dL (8.4-10.2); GFR NON-AFRICAN AMERICAN > 60
[2019-01-06] MEDS: Dextrose 5%/0.45% NS 1,000 ML IV SCH (13:31)
--- NOTE | 2019-01-06 14:05 | CP.PCM.PN ---
Subjective - Date & Time of Evaluation Date of Evaluation: 01/05/19 Time of Evaluation: 15:00 - Subjective Subjective: no overnight events Objective - Vital Signs/Intake and Output Vital Signs (last 24 hours): Temp Pulse Resp BP Pulse Ox 97.7 F 66 20 169/77 H 95 01/06/19 07:55 01/06/19 10:36 01/06/19 07:55 01/06/19 10:36 01/06/19 07:55 - Medications Medications: Current Medications Atorvastatin Calcium (Lipitor) 40 mg PO DAILY [facility] Last Admin: 01/06/19 10:36 Dose: 40 mg Divalproex Sodium (Depakote Dr(*Bid*)) 250 mg PO BID [facility] Last Admin: 01/06/19 10:36 Dose: 250 mg Donepezil HCl (Aricept) 10 mg PO HS [facility] Last Admin: 01/05/19 21:22 Dose: 10 mg Heparin Sodium (Porcine) (Heparin) 5,000 units SC Q12 [facility]; Protocol Last Admin: 01/06/19 10:37 Dose: 5,000 units Losartan Potassium (Cozaar) 25 mg PO DAILY [facility] Last Admin: 01/06/19 10:36 Dose: 25 mg Megestrol Acetate (Megace) 20 mg PO DAILY [facility] Last Admin: 01/06/19 10:36 Dose: 20 mg Pvyru-0-Blud Ethyl Esters (Lovaza) 2 gm PO DAILY [facility] Last Admin: 01/06/19 10:37 Dose: 2 gm Quetiapine Fumarate (Seroquel) 200 mg PO HS [facility] Last Admin: 01/05/19 21:22 Dose: 200 mg - Labs Labs: 01/05/19 07:30 01/06/19 11:40 - Head Exam Head Exam: NORMOCEPHALIC - Neck Exam Neck Exam: Normal Inspection - Respiratory Exam Respiratory Exam: NORMAL BREATHING PATTERN - Cardiovascular Exam Cardiovascular Exam: REGULAR RHYTHM - GI/Abdominal Exam GI & Abdominal Exam: Soft, Normal Bowel Sounds Assessment and Plan - Assessment and Plan (Free Text) Assessment: 88 yo male for peg awaiting consent
--- NOTE | 2019-01-06 14:13 | CP.PCM.PN ---
Subjective - Date & Time of Evaluation Date of Evaluation: 01/06/19 Time of Evaluation: 14:11 - Subjective Subjective: no overnight events Objective - Vital Signs/Intake and Output Vital Signs (last 24 hours): Temp Pulse Resp BP Pulse Ox 97.7 F 66 20 169/77 H 95 01/06/19 07:55 01/06/19 10:36 01/06/19 07:55 01/06/19 10:36 01/06/19 07:55 - Medications Medications: Current Medications Atorvastatin Calcium (Lipitor) 40 mg PO DAILY [facility] Last Admin: 01/06/19 10:36 Dose: 40 mg Divalproex Sodium (Depakote Dr(*Bid*)) 250 mg PO BID [facility] Last Admin: 01/06/19 10:36 Dose: 250 mg Donepezil HCl (Aricept) 10 mg PO HS [facility] Last Admin: 01/05/19 21:22 Dose: 10 mg Heparin Sodium (Porcine) (Heparin) 5,000 units SC Q12 [facility]; Protocol Last Admin: 01/06/19 10:37 Dose: 5,000 units Losartan Potassium (Cozaar) 25 mg PO DAILY [facility] Last Admin: 01/06/19 10:36 Dose: 25 mg Megestrol Acetate (Megace) 20 mg PO DAILY [facility] Last Admin: 01/06/19 10:36 Dose: 20 mg Qzgfr-9-Xyvr Ethyl Esters (Lovaza) 2 gm PO DAILY [facility] Last Admin: 01/06/19 10:37 Dose: 2 gm Quetiapine Fumarate (Seroquel) 200 mg PO HS [facility] Last Admin: 01/05/19 21:22 Dose: 200 mg - Labs Labs: 01/05/19 07:30 01/06/19 11:40 - Neck Exam Neck Exam: Normal Inspection - Respiratory Exam Respiratory Exam: NORMAL BREATHING PATTERN - Cardiovascular Exam Cardiovascular Exam: REGULAR RHYTHM - GI/Abdominal Exam GI & Abdominal Exam: Soft, Normal Bowel Sounds Assessment and Plan - Assessment and Plan (Free Text) Assessment: 88 yo male for peg awaiting consent
[2019-01-06 16:17] VITALS: BP 123/69; PULSE 73; TEMP 97.6; O2SAT 98
--- NOTE | 2019-01-09 13:09 | PQF ---
PROVIDER RESPONSE TEXT: Sepsis ruled out REVIEWER QUERY TEXT: Rule Out Sepsis Clarification -- Patient has sepsis - Please document confirmed, suspected or probable causative organism - Please document confirmed, suspected or probable localized infection - Please clarify if sepsis is related to a device - Please clarify if sepsis was present on admission -- Sepsis was ruled out (include corresponding diagnosis for patient?s clinical picture and treatment ) -- Patient had sepsis which is resolved -- Other, please specify The patient's Clinical Indicators include: BLOOD CS No growth, URINE CS No growth, CXR No acute disease, WBC 8.7, Lactate 3.6-> 2.6 TEMP: 98, 98, 98.1, 981, 97.7 HR: 101, 110, 102, 99, 99, 82 BP: 89/57, 117/79, 137/78, 137/78, 145./78 R: 16, 16, 16, 16, 18 O2 sat 98, 94, 94, 100, 100 Query created by: Nilsa Parker on 01/03/2019 2:23 PM Electronically signed by: Michel Morrow MD 01/09/2019 1:07 PM
--- NOTE | 2019-01-09 13:09 | PQF ---
PROVIDER RESPONSE TEXT: Underweight REVIEWER QUERY TEXT: Documentation Clarification Your help is requested in clarifying the following clinical documentation, if you can please further specify in the medical record and discharge summary. Please clarify if there is an associated diagnosis or not to go along with the BMI findings of BMI 16 .7. Personal Financial Representative consult: BMI 16.7 Underweight < 18.5. The patient's Clinical Indicators include: EMR has the patient listed as 5'9", weight of 113 pounds with a BMI of 16.7. Personal Financial Representative consult: BMI 16.7 Underweight < 18.5. 1. Ensure Plus Shake (8 oz) PO Supplement TID - 1050kcal,39gmPro - ordered 2. 3-Day Calorie Count ordered RX: Destiny, Query created by: Nilsa Parker on 12/29/2018 1:09 PM Electronically signed by: Michel Morrow MD 01/09/2019 1:07 PM
== END 2019-01-06 18:00 | DRG 641 ==
LOC: H.ER 21:33 → H.ERHOLD 23:50 → H.MEDSURG1 12-28 05:42
PROVIDERS: ADMIT Family Medicine; ATTEND Family Medicine
PROC: 3E0234Z Introduction of Serum, Toxoid and Vaccine into Muscle, Percutaneous Approach (ICD-10-PCS; principal; 2018-12-28)
DX: E86.0 Dehydration (principal); F03.91 Unspecified dementia, unspecified severity, with behavioral disturbance; R64 Cachexia; Z68.1 Body mass index [BMI] 19.9 or less, adult; R62.7 Adult failure to thrive; R63.6 Underweight; E87.6 Hypokalemia; I10 Essential (primary) hypertension; I25.10 Atherosclerotic heart disease of native coronary artery without angina pectoris; E78.5 Hyperlipidemia, unspecified; E11.9 Type 2 diabetes mellitus without complications; Z79.84 Long term (current) use of oral hypoglycemic drugs; Z23 Encounter for immunization